=== PATIENT | female | born 1930 | race Caucasian/White ===

== ENCOUNTER → 2016-12-16 17:40 | Emergency (ER) | payer MEDICARE, OTHER ==
[~2016-12-16 17:40] MED LIST: Acetaminophen TAB* 325 MG PO ONE
[2016-12-16 17:53] VITALS: BP 146/86
--- NOTE | 2016-12-16 20:51 | RAD ---
Indication: Back pain after kicking a heavy object. Comparison: July 04, 2015 chest radiograph. Technique: Noncontrast CT thoracic spine. Multiplanar reformation. Report: Increased thoracic kyphosis. Osteoporotic compression fracture of T7 primarily involving the anterior column with approximate 50% loss of height is chronic. Severe anterior and middle column osteoporotic compression fracture at T8 is chronic. Mild osteoporotic compression fracture involving the anterior column superior endplate of T11 is chronic. No new thoracic spine fractures evident. Ectatic tortuous thoracic aorta measuring up to 3 cm diameter. Negative for paravertebral or mediastinal hematoma within the [id number]. Negative for pneumothorax or pleural effusion. IMPRESSION: Multiple old osteoporotic compression fractures of the thoracic spine as described. No new thoracic spine fractures.
--- NOTE | 2016-12-16 20:57 | RAD ---
Indication: Back pain after kicking a heavy object last night. Comparison: July 04, 2015 CT. Technique: Noncontrast CT lumbar sacral spine. Multiplanar reformation. Report: Atherosclerotic calcification of the abdominal aorta and iliac arteries without aneurysm. Negative for paravertebral hematoma. Negative for fracture or spondylolysis at any level. Normal vertebral alignment without spondylolisthesis at any level. T12-L1: Unremarkable disc level for age without acquired spinal stenosis. L1-L2: Unremarkable disc level for age without acquired spinal stenosis. L2-L3: Unremarkable disc level for age without acquired spinal stenosis. L3-L4: Mild annular disc bulge. Negative for acquired spinal stenosis. L4-L5: Advanced disc space narrowing. Mild broad posterior disc protrusion. Negative for acquired central canal stenosis. Degenerative spondylosis and facet joint osteoarthritis results in mild LEFT foraminal stenosis. L5-S1: Mild annular disc bulge. Negative for acquired spinal stenosis. IMPRESSION: 1. Negative for lumbar sacral spine fracture or malalignment. 2. Multilevel degenerative spondylosis and posterior element osteoarthritis as described without significant change. 3. Refer to dedicated thoracic spine CT of the same date for additional findings.
--- NOTE | 2016-12-16 21:47 | ED ---
Back Pain - HPI Summary HPI Summary: Patient presents with back pain that began this morning. She kicked a full trash bag yesterday and thinks this started her discomfort. She didn't feel any pain at the time she nudged the bag with her foot. She has a history of a bulging disk. She denies incontinence of urine or stool, no N/T, she ambulates well. Her pain is in the lumbar and thoracic region without radiation to the extremities. - History of Current Complaint Chief Complaint: EDBackInjuryPain Stated Complaint: LOW BACK PAIN Time Seen by Provider: 12/16/16 18:03 Hx Obtained From: Patient Onset/Duration: Gradual Onset, Still Present Onset/Duration: Traumatic Timing: Constant Severity Initially: Mild Severity Currently: Mild Pain Intensity: 3 Character: Aching, Stiffness Aggravating Symptom(s): Movement Alleviating Symptom(s): Position Associated Signs And Symptoms: Positive: Pain with Weight Bearing Related History: Previous Back Injury - Allergies/Home Medications Allergies/Adverse Reactions: Allergies Allergy/AdvReac Type Severity Reaction Status Date / Time Morphine Allergy Rash Verified 07/04/15 16:10 Tramadol Allergy Rash Verified 07/04/15 16:11 PMH/Surg Hx/FS Hx/Imm Hx Endocrine/Hematology History: Reports: Hx Diabetes - although in her hx - pt & family deny, Hx Thyroid Disease, Hx Anemia Cardiovascular History: Reports: Hx Hypercholesterolemia, Hx Hypertension, Hx Syncope, Other Cardiovascular Problems/Disorders - Irregular Denies: Hx Pacemaker/ICD Respiratory History: Reports: Hx Chronic Obstructive Pulmonary Disease (COPD), Other Respiratory Problems/Disorders - Smoker GI History: Reports: Hx Gastroesophageal Reflux Disease Sensory History: Reports: Hx Contacts or Glasses, Hx Hearing Aid - at home, Hx Hearing Problem Opthamlomology History: Reports: Hx Contacts or Glasses Psychiatric History: Denies: Hx Panic Disorder - Surgical History Surgery Procedure, Year, and Place: TONSILECTOMY Infectious Disease History: No Infectious Disease History: Denies: Traveled Outside the [place] in Last 30 Days - Family History Known Family History: Positive: None - Social History Occupation: Retired Lives: With Family Alcohol Use: None Substance Use Type: Reports: None Smoking Status (MU): Light Every Day Tobacco Smoker Type: Cigarettes Length of Time of Smoking/Using Tobacco: 40 years Have You Smoked in the Last Year: Yes Cessation Counseling: Patient Advised to Stop Review of Systems Positive: Myalgia Negative: Weakness, Paresthesia, Numbness All Other Systems Reviewed And Are Negative: Yes Physical Exam Triage Information Reviewed: Yes Vital Signs On Initial Exam: Initial Vitals Temp Pulse Resp BP Pulse Ox 98.0 F 66 18 146/86 98 12/16/16 17:42 12/16/16 17:42 12/16/16 17:42 12/16/16 17:42 12/16/16 17:42 Vital Signs Reviewed: Yes Appearance: Positive: Well-Appearing, No Pain Distress, Well-Nourished Skin: Positive: Warm, Skin Color Reflects Adequate Perfusion, Dry, Soft Head/Face: Positive: Normal Head/Face Inspection Eyes: Positive: EOMI, WALDEMAR, Conjunctiva Clear ENT: Positive: Hearing grossly normal Respiratory/Lung Sounds: Positive: Clear to Auscultation, Breath Sounds Present Cardiovascular: Positive: RRR Abdomen Description: Positive: Nontender, Soft Bowel Sounds: Positive: Present Musculoskeletal: Positive: Pain @ - + bilateral SLR; TTP bilataral lumbar spine Neurological: Positive: Sensory/Motor Intact, Alert, Oriented to Person Place, Time, NV Bundle Intact Distally, Normal Gait Psychiatric: Positive: Affect/Mood Appropriate AVPU Assessment: Alert Diagnostics - Vital Signs Vital Signs Temp Pulse Resp BP Pulse Ox 12/16/16 17:42 98.0 F 66 18 146/86 98 - Laboratory Lab Statement: Any lab studies that have been ordered have been reviewed, and results considered in the medical decision making process. - CT No standard instances CT Interpretation: No Acute Changes CT Interpretation Completed By: Radiologist Back Pain Course/Dx - Diagnoses Differential Diagnosis/HQI/PQRI: Positive: Aneurysm, Cauda Equina Syndrome, Compressive Cord Syndrome, Herniated Disc, Neoplasm, Strain, Sprain Provider Diagnoses: Low back strain Discharge - Discharge Plan Condition: Stable Disposition: HOME Patient Education Materials: Low Back Strain (ED) Referrals: Gilson Roa MD [Primary Care Provider] - Additional Instructions: Please rest your back and apply head or ice as needed. Use Tylenol regularly for pain. Follow-up with your primary care provider if in 2-3 days for re- evaluation to insure you are improving. Return to the emergency department if symptoms worsen.
== END | disposition home or self-care (01) ==
LOC: ED 17:40
DX: S39.012A Strain of muscle, fascia and tendon of lower back, initial encounter (principal); X58.XXXA Exposure to other specified factors, initial encounter; Y93.9 Activity, unspecified; Y92.89 Other specified places as the place of occurrence of the external cause
CPT/HCPCS: 72128; 72131; 99282; A9270-GY

== ENCOUNTER 2017-05-16 19:56 | Inpatient (IN) | payer MEDICARE, OTHER ==
--- NOTE | 2017-05-16 21:18 | RAD ---
INDICATION: Short of breath COMPARISON: July 04, 2015 TECHNIQUE: PA and lateral dual-energy views were obtained. FINDINGS: Bones/Soft Tissues: There are no acute bony findings. Cardiomediastinal: The cardiomediastinal silhouette is normal. Lungs: There is linear change in the right middle lobe which appears unchanged on the lateral view and now evident on the AP view. The lung mosley are otherwise clear. Pleura: There are no pleural effusions. Other: None IMPRESSION: NO ACUTE FINDINGS. SUSPECT RIGHT MIDDLE LOBE ATELECTASIS.
--- NOTE | 2017-05-16 21:18 | RAD ---
INDICATION: Abdominal pain COMPARISON: July 04, 2015 TECHNIQUE: A single view of the abdomen is submitted. FINDINGS: Bones: There are no acute bony findings. There is osteopenia with mild levoscoliosis Soft tissues: The soft tissues appear normal. The psoas margins are sharp. Bowel gas pattern: Normal Calcifications: There are no abnormal calcifications. Other: None IMPRESSION: NO ACUTE DIAGNOSTIC FINDINGS.
[2017-05-16 21:57] LABS: Hematocrit 39 % (35-47); Hemoglobin 12.2 g/dl (12.0-16.0); Mean Corpuscular HGB Conc 32 g/dl (31-36); Mean Corpuscular Hemoglobin 28 pg (27-31); Mean Corpuscular Volume 87 fL (80-97); Mean Platelet Volume 9 um3 (7.4-10.4); Red Blood Count 4.43 10^6/ul (4.0-5.4); Red Cell Distribution Width 17 % (10.5-15); White Blood Count 7.7 10^3/ul (3.5-10.8)
[2017-05-16 22:01] LABS: Comments Flag Yes
[2017-05-16 22:12] LABS: Albumin 2.8 g/dL (3.2-5.2); Calcium 9.6 mg/dL (8.6-10.3); EGFR African American 194.6 (>60); EGFR Non-African American 151.3 (>60); Globulin 3.9 g/dL (2-4); Magnesium 1.3 mg/dL (1.9-2.7); Potassium 3.7 mmol/L (3.5-5.0); Total Bilirubin 1.4 mg/dL (0.2-1.0); Total Protein 6.7 g/dL (6.4-8.9)
[2017-05-16 22:14] LABS: Troponin I 0.01 ng/mL (<0.04)
[2017-05-16 22:30] LABS: Urine Bilirubin Negative (Negative); Urine Glucose 1+(50 mg/dL) (Negative); Urine Nitrite Negative (Negative)
[2017-05-16 22:48] LABS: TSH (Thyroid Stimulating Horm) 0.38 mcIU/mL (0.34-5.60)
[2017-05-16] MEDS ORDERED: methylPREDNISolone 125 MG* 2 ML VIAL IV ONE (23:32)
--- NOTE | 2017-05-17 00:05 | HP ---
H&P (Free Text) History and Physical: PCP: Charity Roa MD Date/Time: 05/16/2017 8030 CC: SOB HPI: Mrs Anaya is an 86YO female HX subarachnoid hemorrhage, COPD, DM2, HTN who presents reporting SOB over the past week which is worse with walking around and better lying down. She denies chest pain, palpitations, N/V, light- headedness, F/C, sweats, or other issues. Tonight she reports it became worse prompting this evaluation. Additionally, her and her family report abdominal bloating/distention over the past 3 days w/o pain, N/V, or other issues. PMedHx subarachnoid hemorrhage COPD DM2 HTN hypothyroid GERD anemia Ambulatory Orders Nursing to reconcile. Levothyroxine TAB* [Synthroid 88 MCG TAB*] 88 mcg PO DAILY 06/15/13 Tiotropium CAP.INH* [Spiriva CAP.INH*] 1 cap INH DAILY 06/15/13 Ursodiol CAP* [Actigall CAP 300 MG*] 300 mg PO BID 06/23/14 Ascorbic Acid TAB* [Vitamin C TAB*] 250 mg PO BID 07/04/15 Acetaminophen [Eq Acetaminophen] 325 mg PO BEDTIME PRN 07/05/15 Meclizine HCl [Dramamine Less Drowsy-] 25 mg PO Q4H PRN 07/05/15 Nadolol [Corgard] 20 mg PO DAILY #30 tab 07/08/15 Omeprazole CAP* [Prilosec CAP* 20 MG] 20 mg PO BID #60 cap. 07/08/15 Allergies Morphine Allergy (Verified 05/16/17 23:53) Rash Tramadol Allergy (Verified 05/16/17 23:53) Rash PSurgHx tonsillectomy SocHx: 1-2cigarettes/day w/ >60PYHX, denies alcohol & recreational drugs; lives alone; DNR/I FamHx: Parents passed of "old age". ROS: as above, otherwise reviewed and all were negative vitals: Vital Signs Temp 36.3 C 05/16/17 20:00 Pulse 84 05/16/17 20:00 Resp 24 05/16/17 20:00 BP 167/95 05/16/17 20:00 Pulse Ox 100 05/16/17 20:00 Intake & Output 05/16/17 05/16/17 05/17/17 11:59 23:59 11:59 Weight 47.627 kg Constitutional: NAD, normally developed, thin frail appearing elderly white female HEENM: atraumatic; sclera/conjunctiva: anicteric/clear; hearing: moderately decreased; oropharynx: clear, mucosa tacky Neck: soft tissue: non-tender; thyroid: normal Pulmonary: diminished B w/ scand end-expiratory wheeze, fair aeration, no accessory muscle use CV: RR/RR, normal S1S2, no carotid bruit, no jugular venous distention, 2+ B DP/ PT, 2+ BLE edema Abdominal: soft, mild/mod distended, non-tender, no rebound/guarding/rigidity, normoactive bowel sounds, no hepatosplenomegaly or masses, no costovertebral angle tenderness Musculoskeletal: general: grossly intact, no palpable tenderness Integumental: normal appearance and texture of exposed skin Psychiatric orientation: AA&O to PPS affect: calm mood: cooperative, pleasant eye contact: good content: reliable responses: mildly slowed 2nd being hard of hearing & difficulty understanding insight: fair Testing: Lab Results 05/16/17 05/16/17 05/16/17 Range/Units 21:41 21:41 21:41 WBC 7.7 (3.5-10.8) 10^3/ul RBC 4.43 (4.0-5.4) 10^6/ul Hgb 12.2 (12.0-16.0) g/dl Hct 39 (35-47) % MCV 87 (80-97) fL MCH 28 (27-31) pg MCHC 32 (31-36) g/dl RDW 17 H (10.5-15) % Plt Count 98 L (150-450) 10^3/ul MPV 9 (7.4-10.4) um3 Neut % (Auto) 72.8 (38-83) % Lymph % (Auto) 17.8 L (25-47) % Ballard % (Auto) 7.8 (1-9) % Eos % (Auto) 1.2 (0-6) % Baso % (Auto) 0.4 (0-2) % Absolute Neuts (auto) 5.6 (1.5-7.7) 10^3/ul Absolute Lymphs (auto) 1.4 (1.0-4.8) 10^3/ul Absolute Monos (auto) 0.6 (0-0.8) 10^3/ul Absolute Eos (auto) 0.1 (0-0.6) 10^3/ul Absolute Basos (auto) 0 (0-0.2) 10^3/ul Absolute Nucleated RBC 0.01 10^3/ul Nucleated RBC % 0.1 Sodium 140 (133-145) mmol/L Potassium 3.7 (3.5-5.0) mmol/L Chloride 103 (101-111) mmol/L Carbon Dioxide 35 H (22-32) mmol/L Anion Gap 2 (2-11) mmol/L BUN 20 (6-24) mg/dL Creatinine 0.40 L (0.51-0.95) mg/dL Est GFR ( Amer) 194.6 (>60) Est GFR (Non-Af Amer) 151.3 (>60) BUN/Creatinine Ratio 50.0 H (8-20) Glucose 122 H (70-100) mg/dL Calcium 9.6 (8.6-10.3) mg/dL Magnesium 1.3 L (1.9-2.7) mg/dL Total Bilirubin 1.40 H (0.2-1.0) mg/dL AST 39 (13-39) U/L ALT 21 (7-52) U/L Alkaline Phosphatase 130 H (34-104) U/L Troponin I 0.01 (<0.04) ng/mL B-Natriuretic Peptide 189 H ( - 100) pg/mL Total Protein 6.7 (6.4-8.9) g/dL Albumin 2.8 L (3.2-5.2) g/dL Globulin 3.9 (2-4) g/dL Albumin/Globulin Ratio 0.7 L (1-3) TSH 0.38 (0.34-5.60) mcIU/mL Urine Color Urine Appearance Urine pH (5-9) Ur Specific [place] (1.010-1.030) Urine Protein (Negative) Urine Ketones (Negative) Urine Blood (Negative) Urine Nitrate (Negative) Urine Bilirubin (Negative) Urine Urobilinogen (Negative) Ur Leukocyte Esterase (Negative) Urine Glucose (Negative) Urine Ascorbic Acid (Negative) 05/16/17 Range/Units 22:20 WBC (3.5-10.8) 10^3/ul RBC (4.0-5.4) 10^6/ul Hgb (12.0-16.0) g/dl Hct (35-47) % MCV (80-97) fL MCH (27-31) pg MCHC (31-36) g/dl RDW (10.5-15) % Plt Count (150-450) 10^3/ul MPV (7.4-10.4) um3 Neut % (Auto) (38-83) % Lymph % (Auto) (25-47) % Ballard % (Auto) (1-9) % Eos % (Auto) (0-6) % Baso % (Auto) (0-2) % Absolute Neuts (auto) (1.5-7.7) 10^3/ul Absolute Lymphs (auto) (1.0-4.8) 10^3/ul Absolute Monos (auto) (0-0.8) 10^3/ul Absolute Eos (auto) (0-0.6) 10^3/ul Absolute Basos (auto) (0-0.2) 10^3/ul Absolute Nucleated RBC 10^3/ul Nucleated RBC % Sodium (133-145) mmol/L Potassium (3.5-5.0) mmol/L Chloride (101-111) mmol/L Carbon Dioxide (22-32) mmol/L Anion Gap (2-11) mmol/L BUN (6-24) mg/dL Creatinine (0.51-0.95) mg/dL Est GFR ( Amer) (>60) Est GFR (Non-Af Amer) (>60) BUN/Creatinine Ratio (8-20) Glucose (70-100) mg/dL Calcium (8.6-10.3) mg/dL Magnesium (1.9-2.7) mg/dL Total Bilirubin (0.2-1.0) mg/dL AST (13-39) U/L ALT (7-52) U/L Alkaline Phosphatase (34-104) U/L Troponin I (<0.04) ng/mL B-Natriuretic Peptide ( - 100) pg/mL Total Protein (6.4-8.9) g/dL Albumin (3.2-5.2) g/dL Globulin (2-4) g/dL Albumin/Globulin Ratio (1-3) TSH (0.34-5.60) mcIU/mL Urine Color Bia Urine Appearance Clear Urine pH 5.0 (5-9) Ur Specific [place] 1.024 (1.010-1.030) Urine Protein Negative (Negative) Urine Ketones Trace H (Negative) Urine Blood Negative (Negative) Urine Nitrate Negative (Negative) Urine Bilirubin Negative (Negative) Urine Urobilinogen Positive H (Negative) Ur Leukocyte Esterase Negative (Negative) Urine Glucose 1+(50 mg/dl) H (Negative) Urine Ascorbic Acid * H (Negative) ECG, personally reviewed: sinus LBBB rate 85 CXR, personally reviewed: IMPRESSION: NO ACUTE FINDINGS. SUSPECT RIGHT MIDDLE LOBE ATELECTASIS. XRY abdomen, personally reviewed: IMPRESSION: NO ACUTE DIAGNOSTIC FINDINGS. Impression: 86F presenting with SOB and clinically most consistent with COPD exacerbation, but also with signs of heart failure DIAGNOSIS & PLAN Primary COPD exacerbation : albuterol nebs : mometasone/formoterol : tiotropium : IV methylprednisolone : supplemental oxygen : supportive care Secondary HX subarachnoid hemorrhage : no acute issues DM2 : check A1c : consistent carb diet : ACHS glucometry : correctional insulin HTN : review meds once reconciled hypothyroid : review meds once reconciled GERD : omeprazole Admission Rational: observation for SOB, COPD exacerbation DVTp: SCDs, no anticoagulation given HX SAH Code Status: DNR HCP: sonWarren
[2017-05-17] MEDS ORDERED: CMCS: Melatonin (NF) 3 MG TAB PO PRN (01:22)
[2017-05-17] MEDS ORDERED: Acetaminophen TAB* 325 MG PO PRN (01:22)
[2017-05-17] MEDS ORDERED: Albuterol 2.5 MG/3 ML NEB.SOL* (0.083%) INH PRN (01:22)
[2017-05-17] MEDS ORDERED: Ondansetron INJ* 2 MG/ML VIAL IV PRN (01:22)
--- NOTE | 2017-05-17 03:44 | ED ---
Arabella Ware Edward, scribed for Funmilayo Diaz MD on 05/16/17 at 2031 . Shortness of Breath - HPI Summary HPI Summary: 86 y/o female BIBA c/o SOB and weakness starting around 1 week ago. The symptoms are not aggravated or alleviated by anything. No PMHx lung disease. Associated sx: decreased appetite, ABD distended first noticed by family this afternoon, bilateral pedal edema, loose bowel movements. Most of the information is provided by the pt's family. Smoker. Per family, the pt is much worse than baseline. - History of Current Complaint Chief Complaint: EDShortnessOfBreath Hx Obtained From: Patient Onset/Duration: Lasting Weeks Timing: Constant Aggrevating Factors: Nothing Alleviating Factors: Nothing Associated Signs & Symptoms: Edema - bilateral pedal edema - Allergy/Home Medications Allergies/Adverse Reactions: Allergies Allergy/AdvReac Type Severity Reaction Status Date / Time Morphine Allergy Rash Verified 05/16/17 23:53 Tramadol Allergy Rash Verified 05/16/17 23:53 PMH/Surg Hx/FS Hx/Imm Hx Previously Healthy: No Endocrine/Hematology History: Reports: Hx Diabetes - although in her hx - pt & family deny, Hx Thyroid Disease, Hx Anemia Cardiovascular History: Reports: Hx Hypercholesterolemia, Hx Hypertension, Hx Syncope, Other Cardiovascular Problems/Disorders - Irregular Denies: Hx Pacemaker/ICD Respiratory History: Reports: Hx Chronic Obstructive Pulmonary Disease (COPD), Other Respiratory Problems/Disorders - Smoker GI History: Reports: Hx Gastroesophageal Reflux Disease Sensory History: Reports: Hx Contacts or Glasses, Hx Hearing Aid - at home, Hx Hearing Problem Opthamlomology History: Reports: Hx Contacts or Glasses Psychiatric History: Denies: Hx Panic Disorder - Surgical History Surgery Procedure, Year, and Place: TONSILECTOMY Infectious Disease History: No Infectious Disease History: Denies: Traveled Outside the [place] in Last 30 Days - Family History Known Family History: Positive: None - Social History Alcohol Use: None Substance Use Type: Reports: None Smoking Status (MU): Light Every Day Tobacco Smoker Type: Cigarettes Length of Time of Smoking/Using Tobacco: 40 years Have You Smoked in the Last Year: Yes Review of Systems Positive: Other - Decreased appetite Eyes: Negative ENT: Negative Cardiovascular: Negative Positive: Shortness Of Breath Positive: Diarrhea, Other - ABD distension Genitourinary: Negative Musculoskeletal: Negative Skin: Negative Positive: Weakness Psychological: Normal All Other Systems Reviewed And Are Negative: No Physical Exam - Summary Physical Exam Summary: Appearance: The patient is in moderate pain distress. The patient is moaning, giving no history and awake. The patient is following instructions and occasionally speaks. Skin: Warm, dry, no mottling, no rashes, no contusions HEENT: EOMI, PERRL, dry mucous membranes Neck: No masses on the neck, supple Respiratory: Crackles at the lower bases. Her breath sounds are normal but there is some splinting. Cardiovascular: RRR, pulses are symmetrical in both lower and upper extremities Abdomen: Soft, distended, nonimpressively tender. Bowel Sounds: Present Musculoskeletal: No CVA tenderness, no obvious deformity, moving all extremities in a grossly normal manner. 2+ pedal edema Neurological: A&Ox3, CN II-XII Intact, moving all extremities symmetrically Psychiatric: Normal affect and mood Triage Information Reviewed: Yes Vital Signs On Initial Exam: Initial Vitals Temp Pulse Resp BP Pulse Ox 97.3 F 84 24 167/95 100 05/16/17 20:00 05/16/17 20:00 05/16/17 20:00 05/16/17 20:00 05/16/17 20:00 Vital Signs Reviewed: Yes - Fredi Coma Scale Coma Scale Total: 14 Diagnostics - Vital Signs Vital Signs Temp Pulse Resp BP Pulse Ox 05/16/17 20:00 97.3 F 84 24 167/95 100 - Laboratory Lab Results: Lab Results 05/16/17 05/16/17 05/16/17 Range/Units 21:41 21:41 21:41 WBC 7.7 (3.5-10.8) 10^3/ul RBC 4.43 (4.0-5.4) 10^6/ul Hgb 12.2 (12.0-16.0) g/dl Hct 39 (35-47) % MCV 87 (80-97) fL MCH 28 (27-31) pg MCHC 32 (31-36) g/dl RDW 17 H (10.5-15) % Plt Count 98 L (150-450) 10^3/ul MPV 9 (7.4-10.4) um3 Neut % (Auto) 72.8 (38-83) % Lymph % (Auto) 17.8 L (25-47) % [place] % (Auto) 7.8 (1-9) % Eos % (Auto) 1.2 (0-6) % Baso % (Auto) 0.4 (0-2) % Absolute Neuts (auto) 5.6 (1.5-7.7) 10^3/ul Absolute Lymphs (auto) 1.4 (1.0-4.8) 10^3/ul Absolute Monos (auto) 0.6 (0-0.8) 10^3/ul Absolute Eos (auto) 0.1 (0-0.6) 10^3/ul Absolute Basos (auto) 0 (0-0.2) 10^3/ul Absolute Nucleated RBC 0.01 10^3/ul Nucleated RBC % 0.1 Sodium 140 (133-145) mmol/L Potassium 3.7 (3.5-5.0) mmol/L Chloride 103 (101-111) mmol/L Carbon Dioxide 35 H (22-32) mmol/L Anion Gap 2 (2-11) mmol/L BUN 20 (6-24) mg/dL Creatinine 0.40 L (0.51-0.95) mg/dL Est GFR ( Amer) 194.6 (>60) Est GFR (Non-Af Amer) 151.3 (>60) BUN/Creatinine Ratio 50.0 H (8-20) Glucose 122 H (70-100) mg/dL Calcium 9.6 (8.6-10.3) mg/dL Magnesium 1.3 L (1.9-2.7) mg/dL Total Bilirubin 1.40 H (0.2-1.0) mg/dL AST 39 (13-39) U/L ALT 21 (7-52) U/L Alkaline Phosphatase 130 H (34-104) U/L Troponin I 0.01 (<0.04) ng/mL B-Natriuretic Peptide 189 H ( - 100) pg/mL Total Protein 6.7 (6.4-8.9) g/dL Albumin 2.8 L (3.2-5.2) g/dL Globulin 3.9 (2-4) g/dL Albumin/Globulin Ratio 0.7 L (1-3) TSH 0.38 (0.34-5.60) mcIU/mL Urine Color Urine Appearance Urine pH (5-9) Ur Specific [place] (1.010-1.030) Urine Protein (Negative) Urine Ketones (Negative) Urine Blood (Negative) Urine Nitrate (Negative) Urine Bilirubin (Negative) Urine Urobilinogen (Negative) Ur Leukocyte Esterase (Negative) Urine Glucose (Negative) Urine Ascorbic Acid (Negative) 05/16/17 Range/Units 22:20 WBC (3.5-10.8) 10^3/ul RBC (4.0-5.4) 10^6/ul Hgb (12.0-16.0) g/dl Hct (35-47) % MCV (80-97) fL MCH (27-31) pg MCHC (31-36) g/dl RDW (10.5-15) % Plt Count (150-450) 10^3/ul MPV (7.4-10.4) um3 Neut % (Auto) (38-83) % Lymph % (Auto) (25-47) % [place] % (Auto) (1-9) % Eos % (Auto) (0-6) % Baso % (Auto) (0-2) % Absolute Neuts (auto) (1.5-7.7) 10^3/ul Absolute Lymphs (auto) (1.0-4.8) 10^3/ul Absolute Monos (auto) (0-0.8) 10^3/ul Absolute Eos (auto) (0-0.6) 10^3/ul Absolute Basos (auto) (0-0.2) 10^3/ul Absolute Nucleated RBC 10^3/ul Nucleated RBC % Sodium (133-145) mmol/L Potassium (3.5-5.0) mmol/L Chloride (101-111) mmol/L Carbon Dioxide (22-32) mmol/L Anion Gap (2-11) mmol/L BUN (6-24) mg/dL Creatinine (0.51-0.95) mg/dL Est GFR ( Amer) (>60) Est GFR (Non-Af Amer) (>60) BUN/Creatinine Ratio (8-20) Glucose (70-100) mg/dL Calcium (8.6-10.3) mg/dL Magnesium (1.9-2.7) mg/dL Total Bilirubin (0.2-1.0) mg/dL AST (13-39) U/L ALT (7-52) U/L Alkaline Phosphatase (34-104) U/L Troponin I (<0.04) ng/mL B-Natriuretic Peptide ( - 100) pg/mL Total Protein (6.4-8.9) g/dL Albumin (3.2-5.2) g/dL Globulin (2-4) g/dL Albumin/Globulin Ratio (1-3) TSH (0.34-5.60) mcIU/mL Urine Color Bia Urine Appearance Clear Urine pH 5.0 (5-9) Ur Specific [place] 1.024 (1.010-1.030) Urine Protein Negative (Negative) Urine Ketones Trace H (Negative) Urine Blood Negative (Negative) Urine Nitrate Negative (Negative) Urine Bilirubin Negative (Negative) Urine Urobilinogen Positive H (Negative) Ur Leukocyte Esterase Negative (Negative) Urine Glucose 1+(50 mg/dl) H (Negative) Urine Ascorbic Acid * H (Negative) Result Diagrams: 05/16/17 21:41 05/16/17 21:41 Lab Statement: Any lab studies that have been ordered have been reviewed, and results considered in the medical decision making process. - Radiology ABD XR Xray Interpretation: No Acute Changes - NO ACUTE DIAGNOSTIC FINDINGS. Radiology Interpretation Completed By: Radiologist - ED PHYSICIAN REVIEWS AND AGREES CXR Xray Interpretation: No Acute Changes - NO ACUTE FINDINGS. SUSPECT RIGHT MIDDLE LOBE ATELECTASIS. Radiology Interpretation Completed By: Radiologist - ED PHYSICIAN REVIEWS AND AGREES - EKG 1 EKG Interpretation: 21:23 - SR @ 85 BPM. LBBB. No AMI. Course/Dx - Course Assessment/Plan: 86 y/o female BIBA c/o SOB and weakness starting around 1 week ago. The symptoms are not aggravated or alleviated by anything. No PMHx lung disease. Associated sx: decreased appetite, ABD distended first noticed by family this afternoon, bilateral pedal edema, loose bowel movements. Most of the information is provided by the pt's family. Smoker. Per family, the pt is much worse than baseline. ABD XR SHOWS NO ACUTE DIAGNOSTIC FINDINGS. CXR SHOWS NO ACUTE FINDINGS. SUSPECT RIGHT MIDDLE LOBE ATELECTASIS. Spoke with Dr. Almanza, who will admit the pt to [facility] @ 23:38. - Diagnoses Provider Diagnoses: Weakness, COPD exacerbation - Physician Notifications Discussed Care of Patient With: Pablo Almanza Time Discussed With Above Provider: 23:38 Instructed by Provider To: Admit As Inpatient Discharge - Discharge Plan Condition: Stable Disposition: ADMITTED TO [facility] documentation as recorded by the Arabella cheng Edward accurately reflects the service I personally performed and the decisions made by , Funmilayo Diaz MD.
[2017-05-17] MEDS: Omeprazole CAP* 20 MG PO SCH (06:04)
[2017-05-17 06:57] LABS: Hematocrit 36 % (35-47); Hemoglobin 11.2 g/dl (12.0-16.0); Mean Corpuscular HGB Conc 31 g/dl (31-36); Mean Corpuscular Hemoglobin 28 pg (27-31); Mean Corpuscular Volume 88 fL (80-97); Mean Platelet Volume 10 um3 (7.4-10.4); Red Blood Count 4.06 10^6/ul (4.0-5.4); Red Cell Distribution Width 16 % (10.5-15); White Blood Count 5.2 10^3/ul (3.5-10.8)
[2017-05-17 07:11] LABS: Comments Flag Yes
[2017-05-17 07:19] LABS: ALT 19 U/L (7-52); AST 36 U/L (13-39); Albumin 2.6 g/dL (3.2-5.2); Alkaline Phosphatase 124 U/L (34-104); CO2 Carbon Dioxide 37 mmol/L (22-32); Calcium 9.4 mg/dL (8.6-10.3); Chloride 105 mmol/L (101-111); EGFR African American 194.6 (>60); EGFR Non-African American 151.3 (>60); Globulin 3.4 g/dL (2-4); Glucose 148 mg/dL (70-100); Indirect Bilirubin 0.6 mg/dL (0.3-1.0); Sodium 142 mmol/L (133-145)
[2017-05-17 07:21] LABS: Prealbumin 5 mg/dL (18-38)
[2017-05-17] MEDS: Albuterol 2.5 MG/3 ML NEB.SOL* (0.083%) INH SCH ×3 (08:14→19:43)
[2017-05-17] MEDS: Mometasone/Formoter 200/5 MDI INH SCH ×2 (08:17→19:48)
[2017-05-17 08:42] LABS: BUN/Creatinine Ratio 52.5 (8-20); Blood Urea Nitrogen 21 mg/dL (6-24)
[2017-05-17] MEDS: Insulin LISPRO* 1 UNITS UNIT SUBCUT SCH ×4 (08:48→21:49)
[2017-05-17] MEDS: Docusate CAP* 100 MG PO SCH ×2 (08:49→22:00)
[2017-05-17] MEDS ORDERED: Influenza VAC *QUAD* 2017-18* 0.5 ML SYRINGE IM ONE (09:00)
--- NOTE | 2017-05-17 11:44 | ECHO ---
Patient: ANNAMARIA FRIEND [facility] Rec#: [id number] : 1930 Date: 05/17/2017 Age: 86y Height: 152.4 cm / 60.0 in Weight: 47.6 kg / 104.9 lbs Sex: F BSA: 1.42 Room#: [facility] Admit Date#: 05/16/2017 Type: Inpatient Referring: Pablo Almanza MD Reading: Jose Armando Hansen MD [employer] Worker: Nithya Summers RN RDCS CC: Gilson Roa MD Transthoracic Echocardiogram Indication: CHF BP: 104/51 HR: 109 Rhythm: Tachycardia Findings History: DM, HTN, LBBB, hypothyroidism, COPD, former smoker, subarachnoid hemorrhage, GERD Technical Comments: The study is technically limited due to patient body habitus. The study is technically limited due to the patient's history of COPD. The study is technically limited due to the patient's smoking history. Completed at 1045. Left Ventricle: The left ventricular chamber size is normal. Septal wall hypertrophy is observed. There is basal septal hypertrophy without evidence of systolic anterior motion.There is turbulence and mildly increased velocities in the LVOT. There is a focal wall motion abnormality present. There is mildly decreased left ventricular systolic function. The estimated ejection fraction is 45-50%. There is a left ventricular septal wall motion abnormality observed, possibly due to the presence of a left bundle branch block. The assessment of diastolic function is non-diagnostic. The patient was unable to perform a Valsalva maneuver. The apical lateral wall segment is hypokinetic (score 2). Overall wallmotion score index is 1.50 Left Atrium: The left atrial chamber size is normal. Right Ventricle: The right ventricle is not well visualized. The right ventricular cavity size is normal. The right ventricular global systolic function is normal. Right Atrium: The right atrium is not well visualized. The interatrial septum bowed toward the left. Aortic Valve: The aortic valve is trileaflet. The aortic valve leaflets are mildly thickened. There is aortic annular calcification. There is a trace of aortic regurgitation. There is mild aortic stenosis. The mean gradient of the aortic valve is 9.4 mmHg. The peak instantaneous gradient of the aortic valve is 13.4 mmHg. The aortic valve area, by peak velocities, is calculated at 1.9 cm2. The aortic valve area, by VTI's, is calculated at 1.7 cm2. Mitral Valve: There is mitral annular calcification. The mitral valve leaflets are mildly thickened. There is a trace of mitral regurgitation. There is no evidence of mitral stenosis. Tricuspid Valve: The tricuspid valve structure is not well visualized. The tricuspid valve leaflets are normal. There is trace to mild tricuspid regurgitation. Unable to estimate the right ventricular systolic pressure. Pulmonic Valve: The pulmonic valve structure is not well visualized. Pericardium: There is no significant pericardial effusion. Aorta: There is no dilatation of the ascending aorta. There is no dilatation of the aortic arch. There is no dilation of the aortic root. Pulmonary Artery: The main pulmonary artery is not well visualized. Venous: The venous system is not well visualized. The inferior vena cava is not visualized. Summary: There are changes noted when compared to the previous study done on 06/26/14. The LV function is slightly better on this study Conclusions There is mildly decreased left ventricular systolic function. The estimated ejection fraction is 45-50%. There is basal septal hypertrophy without evidence of systolic anterior motion.There is turbulence and mildly increased velocities in the LVOT. There is a left ventricular septal wall motion abnormality observed, possibly due to the presence of a left bundle branch block. The apical lateral wall segment is hypokinetic (score 2). The right ventricular global systolic function is normal. The aortic valve leaflets are mildly thickened. There is mild aortic stenosis. The mean gradient of the aortic valve is 9.4 mmHg. There is a trace of mitral regurgitation. There is trace to mild tricuspid regurgitation. Unable to estimate the right ventricular systolic pressure. There is no significant pericardial effusion. There are changes noted when compared to the previous study done on 06/26/14. The LV function is slightly better on this study Measurements Name Value Normal Range RVDdMajor (2D) 2.9 cm (2.2 - 4.4) IVSd (2D) 1.2 cm (0.6 - 1) LVPWd (2D) 1 cm (0.6 - 1) LVIDd (2D) 3.3 cm (3.6 - 5.4) LVIDs (2D) 2.5 cm - LV FS (2D) 24 % (25 - 45) Aortic Annulus 1.6 cm (1.4 - 2.6) Ao root diameter (2D) 2.9 cm (2.1 - 3.5) Ascending Ao 3 cm (2.1 - 3.4) Aortic arch 2.2 cm (1.8 - 3.4) LA dimension (AP) 2D 3.1 cm (2.3 - 3.8) LAd ISD 4CH 5.2 cm (2.9 - 5.3) LA ISD 4CH W 3 cm (2.5 - 4.5) Name Value Normal Range LA ESV SP 4CH (A/L) 24.2 ml - LA ESV SP 2CH (A/L) 14.9 ml - LA ESV BP (A/L) 20.9 ml - LA ESV BP (A/L) index 14.7 ml/m2 - LA ESV SP 4CH (MOD) 22.9 ml - LA ESV SP 2CH (MOD) 14.5 ml - Name Value Normal Range MV E-wave Vmax 1.3 m/sec - MV deceleration time 124 msec - MV A-wave Vmax 1.4 m/sec - MV E:A ratio 0.9 ratio - LV septal e' Vmax 0.05 m/sec - LV lateral e' Vmax 0.07 m/sec - LV E:e' septal ratio 26 ratio - LV E:e' lateral ratio 18.6 ratio - Name Value Normal Range AV Vmax 1.8 m/sec - AV VTI 31.3 cm - AV peak gradient 13.4 mmHg - AV mean gradient 9.4 mmHg - LVOT diameter 1.9 cm - LVOT Vmax 1.2 m/sec - LVOT VTI 19.1 cm - LVOT peak gradient 5.8 mmHg - LVOT mean gradient 3.4 mmHg - DOI (VTI) 0.61 ratio - DOI (Vmax) 0.67 ratio - SV LVOT 56 ml - VÍCTOR (continuity Vmax) 1.9 cm2 - VÍCTOR (continuity VTI) 1.7 cm2 - RUDDY Vmax 0.46 m/sec - Name Value Normal Range PV Vmax 1.1 m/sec - Wallmotion BAS Not Seen BA Not Seen BAL Not Seen ANKIT Not Seen BI Not Seen BIS Not Seen MAS Not Seen MA Not Seen MAL Not Seen MIL Not Seen VT Not Seen MIS Not Seen Normal AA Not Seen AL Hypokinetic AI Not Seen APEX Not Seen
[2017-05-17] MEDS ORDERED: Iodixanol* (CONTRAST) 320 MG/ML 100 ML SDV IV ONE (15:32)
--- NOTE | 2017-05-17 15:36 | PN ---
Subjective Date of Service: 05/17/17 Interval History: Seen this AM and again this afternoon with daughter and granddaughter at bedside SOB still present, better when lying 45 degrees from sitting straight up No chest pain, N/V, Family relays about 10lb weight loss since January Objective Active Medications: Acetaminophen (Tylenol Tab*) 650 mg PO Q6H PRN PRN Reason: FEVER/PAIN Albuterol (Ventolin 2.5 Mg/3 Ml Neb.Jeane*) 2.5 mg INH Q2H PRN PRN Reason: SOB/WHEEZING Albuterol (Ventolin 2.5 Mg/3 Ml Neb.Jeane*) 2.5 mg INH [id number] AWAKE [facility] Last Admin: 05/17/17 13:08 Dose: 2.5 mg Docusate Sodium (Colace Cap*) 200 mg PO BID [facility] Last Admin: 05/17/17 08:49 Dose: 200 mg Insulin Human Lispro (Humalog*) 0 units SUBCUT ACHS [facility] PRN Reason: Protocol Last Admin: 05/17/17 12:21 Dose: 2 unit Melatonin (Melatonin (Nf)) 3 mg PO BEDTIME PRN; Protocol PRN Reason: Sleep Methylprednisolone Sodium Succinate (Solu-Medrol 40 Mg) 40 mg IV Q8H [facility] Mometasone Furoate/Formoterol Fumar (Dulera 200/5 Mdi*) 2 puff INH BID [facility] Last Admin: 05/17/17 08:17 Dose: 2 puff Omeprazole (Prilosec Cap*) 20 mg PO DAILY@0600 [facility] Last Admin: 05/17/17 06:04 Dose: Not Given Ondansetron HCl (Zofran Inj*) 4 mg IV Q6H PRN PRN Reason: NAUSEA Oxygen Devices in Use Now: Nasal Cannula Appearance: thin, NAD Eyes: No Scleral Icterus, PERRLA Ears/Nose/Mouth/Throat: - - dry mm Neck: NL Appearance and Movements; NL JVP, Trachea Midline Respiratory: Symmetrical Chest Expansion and Respiratory Effort, - - decreased BS Cardiovascular: - - tachy, regular, 2/6 holosystolic murmur llsb Abdominal: - - soft, TTP throughout, distened, no rebound/guarding, +bs Lymphatic: No Cervical Adenopathy Extremities: No Edema, No Clubbing, Cyanosis Skin: No Rash or Ulcers, No Nodules or Sclerosis Neurological: Alert and Oriented x 3 Result Diagrams: 05/17/17 06:26 05/17/17 06:26 Additional Lab and Data: Lab Results 05/16/17 05/16/17 05/16/17 Range/Units 21:41 21:41 21:41 WBC 7.7 (3.5-10.8) 10^3/ul RBC 4.43 (4.0-5.4) 10^6/ul Hgb 12.2 (12.0-16.0) g/dl Hct 39 (35-47) % MCV 87 (80-97) fL MCH 28 (27-31) pg MCHC 32 (31-36) g/dl RDW 17 H (10.5-15) % Plt Count 98 L (150-450) 10^3/ul MPV 9 (7.4-10.4) um3 Neut % (Auto) 72.8 (38-83) % Lymph % (Auto) 17.8 L (25-47) % [place] % (Auto) 7.8 (1-9) % Eos % (Auto) 1.2 (0-6) % Baso % (Auto) 0.4 (0-2) % Absolute Neuts (auto) 5.6 (1.5-7.7) 10^3/ul Absolute Lymphs (auto) 1.4 (1.0-4.8) 10^3/ul Absolute Monos (auto) 0.6 (0-0.8) 10^3/ul Absolute Eos (auto) 0.1 (0-0.6) 10^3/ul Absolute Basos (auto) 0 (0-0.2) 10^3/ul Absolute Nucleated RBC 0.01 10^3/ul Nucleated RBC % 0.1 Sodium 140 (133-145) mmol/L Potassium 3.7 (3.5-5.0) mmol/L Chloride 103 (101-111) mmol/L Carbon Dioxide 35 H (22-32) mmol/L Anion Gap 2 (2-11) mmol/L BUN 20 (6-24) mg/dL Creatinine 0.40 L (0.51-0.95) mg/dL Est GFR ( Amer) 194.6 (>60) Est GFR (Non-Af Amer) 151.3 (>60) BUN/Creatinine Ratio 50.0 H (8-20) Glucose 122 H (70-100) mg/dL Calcium 9.6 (8.6-10.3) mg/dL Magnesium 1.3 L (1.9-2.7) mg/dL Total Bilirubin 1.40 H (0.2-1.0) mg/dL AST 39 (13-39) U/L ALT 21 (7-52) U/L Alkaline Phosphatase 130 H (34-104) U/L Troponin I 0.01 (<0.04) ng/mL B-Natriuretic Peptide 189 H ( - 100) pg/mL Total Protein 6.7 (6.4-8.9) g/dL Albumin 2.8 L (3.2-5.2) g/dL Globulin 3.9 (2-4) g/dL Albumin/Globulin Ratio 0.7 L (1-3) TSH 0.38 (0.34-5.60) mcIU/mL Urine Color Urine Appearance Urine pH (5-9) Ur Specific [place] (1.010-1.030) Urine Protein (Negative) Urine Ketones (Negative) Urine Blood (Negative) Urine Nitrate (Negative) Urine Bilirubin (Negative) Urine Urobilinogen (Negative) Ur Leukocyte Esterase (Negative) Urine Glucose (Negative) Urine Ascorbic Acid (Negative) 05/16/17 Range/Units 22:20 WBC (3.5-10.8) 10^3/ul RBC (4.0-5.4) 10^6/ul Hgb (12.0-16.0) g/dl Hct (35-47) % MCV (80-97) fL MCH (27-31) pg MCHC (31-36) g/dl RDW (10.5-15) % Plt Count (150-450) 10^3/ul MPV (7.4-10.4) um3 Neut % (Auto) (38-83) % Lymph % (Auto) (25-47) % [place] % (Auto) (1-9) % Eos % (Auto) (0-6) % Baso % (Auto) (0-2) % Absolute Neuts (auto) (1.5-7.7) 10^3/ul Absolute Lymphs (auto) (1.0-4.8) 10^3/ul Absolute Monos (auto) (0-0.8) 10^3/ul Absolute Eos (auto) (0-0.6) 10^3/ul Absolute Basos (auto) (0-0.2) 10^3/ul Absolute Nucleated RBC 10^3/ul Nucleated RBC % Sodium (133-145) mmol/L Potassium (3.5-5.0) mmol/L Chloride (101-111) mmol/L Carbon Dioxide (22-32) mmol/L Anion Gap (2-11) mmol/L BUN (6-24) mg/dL Creatinine (0.51-0.95) mg/dL Est GFR ( Amer) (>60) Est GFR (Non-Af Amer) (>60) BUN/Creatinine Ratio (8-20) Glucose (70-100) mg/dL Calcium (8.6-10.3) mg/dL Magnesium (1.9-2.7) mg/dL Total Bilirubin (0.2-1.0) mg/dL AST (13-39) U/L ALT (7-52) U/L Alkaline Phosphatase (34-104) U/L Troponin I (<0.04) ng/mL B-Natriuretic Peptide ( - 100) pg/mL Total Protein (6.4-8.9) g/dL Albumin (3.2-5.2) g/dL Globulin (2-4) g/dL Albumin/Globulin Ratio (1-3) TSH (0.34-5.60) mcIU/mL Urine Color Bia Urine Appearance Clear Urine pH 5.0 (5-9) Ur Specific [place] 1.024 (1.010-1.030) Urine Protein Negative (Negative) Urine Ketones Trace H (Negative) Urine Blood Negative (Negative) Urine Nitrate Negative (Negative) Urine Bilirubin Negative (Negative) Urine Urobilinogen Positive H (Negative) Ur Leukocyte Esterase Negative (Negative) Urine Glucose 1+(50 mg/dl) H (Negative) Urine Ascorbic Acid * H (Negative) Assess/Plan/Problems-Billing Assessment: 86 yo F with significant weight loss and decreased energy x 4 months presents with increasing sob over the last 3 days - Patient Problems (1) Acute respiratory failure with hypoxia Comment: No e/o underlying PNA or metabolic cause for tachypnea and hypoxia concern for PE given increased imobility, tachycardia and hypoxia Check CTA chest COPD also on differential. Continue IV steroids and inhaled medications. Nadolol was not restarted and tachycardia may represent rebound (2) CHF (congestive heart failure) Comment: combined systolic/diastolic - chornic compensated (3) COPD (chronic obstructive pulmonary disease) Comment: suspect contributing to SOB steroids IV dulera Did not appear to be on prophylactic meds at home (4) Hypothyroidism Comment: Continue current dose of synthroid. (5) Non-insulin dependent type 2 diabetes mellitus Comment: HbA1c 5.5% Stop FSG (6) Protein calorie malnutrition Comment: Severe Pre albumin <5 >10% weight loss in 4 months nutrition c/s (7) DVT prophylaxis Comment: SCDs with h/o SAH
--- NOTE | 2017-05-17 16:52 | RAD ---
INDICATION: New hypoxia and tachycardia. COPD. Assess for pulmonary embolus. COMPARISON: May 16, 2017 chest radiograph and July 04, 2015 CT abdomen. December 16, 2016 CT thoracic spine. TECHNIQUE: Multidetector CT images were obtained from the lung apices to the upper abdomen with 56 mL Visipaque 320 IV contrast. Pulmonary angiogram protocol. Multiplanar reformation including with maximum intensity projection. REPORT: Emphysema most prominent at the upper lung zones. No suspicious focal pulmonary lesion. Small dependent RIGHT and trace LEFT pleural effusions with proportional basilar atelectasis. Negative for pneumothorax. Negative for thoracic lymphadenopathy, cardiomegaly, pericardial effusion. Tortuous thoracic aorta. Top normal diameter of the aorta at the thoracic abdominal junction measuring up to 2.9 cm diameter without significant change. Negative for dissection of the thoracic aorta. Moderate peripheral atherosclerotic plaque at the visualized abdominal aorta at the level of the renal arteries. Filling defects within the bilateral upper lung zone pulmonary arteries consistent with pulmonary emboli with the largest at the apical and posterior RIGHT upper lobe segmental pulmonary arteries. Images through the upper abdomen are remarkable for a large volume ascites new compared with the 2014 exam. Partially visualized LEFT kidney is remarkable for mild pelvicaliectasis new compared with the prior exam. Advanced compression fracture of the T8 vertebral body without significant change in advanced compression fracture of the T12 vertebral body involving the anterior and middle columns with interval worsening compared with the December 16, [address] Negative for significant resulting central canal stenosis. Negative for paravertebral hematoma. IMPRESSION: 1. Moderate burden of acute pulmonary emboli most confluent at the upper lobes. 2. Emphysema. 3. Images through the upper abdomen are remarkable for a large volume ascites new compared with the 2014 exam. Partially visualized LEFT kidney is remarkable for mild pelvicaliectasis new compared with the prior exam. 4. Interval worsening of T12 vertebral body fracture involving the anterior and middle columns compared with the August 18, 2016 CT. Negative for significant resulting central canal stenosis. No visualized paravertebral hematoma. Results discussed with Dr. Manning 05/17/2017 4:48 PM EST
[2017-05-17] MEDS ORDERED: Heparin VIAL(*) 5000 UNITS/ML VIAL (FIVE THOUSAND) IV SCH (17:00)
[2017-05-17] MEDS ORDERED: Heparin DRIP 25,000 UNITS(*) 25,000 UNITS/500 ML BAG IVPB SCH (17:00)
[2017-05-17] MEDS ORDERED: Enoxaparin(*) 40 MG/0.4 ML SYR SUBCUT SCH (17:00)
[2017-05-17] MEDS: Enoxaparin(*) 40 MG/0.4 ML SYR SUBCUT SCH (17:53)
[2017-05-18] MEDS: Albuterol 2.5 MG/3 ML NEB.SOL* (0.083%) INH SCH ×2 (00:55→07:57)
[2017-05-18] MEDS ORDERED: Heparin VIAL(*) 5000 UNITS/ML VIAL (FIVE THOUSAND) SUBCUT SCH (06:00)
[2017-05-18] MEDS: Omeprazole CAP* 20 MG PO SCH (06:16)
[2017-05-18] MEDS: Enoxaparin(*) 40 MG/0.4 ML SYR SUBCUT SCH ×2 (06:17→16:59)
[2017-05-18] MEDS: Levothyroxine TAB* 88 MCG TAB PO SCH (06:17)
[2017-05-18] MEDS: Insulin LISPRO* 1 UNITS UNIT SUBCUT SCH ×4 (07:31→21:33)
[2017-05-18 07:33] LABS: Hematocrit 34 % (35-47); Hemoglobin 10.8 g/dl (12.0-16.0); Mean Corpuscular HGB Conc 32 g/dl (31-36); Mean Corpuscular Hemoglobin 28 pg (27-31); Mean Corpuscular Volume 88 fL (80-97); Mean Platelet Volume 10 um3 (7.4-10.4); Red Blood Count 3.91 10^6/ul (4.0-5.4); Red Cell Distribution Width 17 % (10.5-15); White Blood Count 8.2 10^3/ul (3.5-10.8)
[2017-05-18] MEDS: Tiotropium CAP.INH* CAP.INH/18 MCG (USE ORDER SET !) INH SCH (07:33)
[2017-05-18 07:34] LABS: Comments Flag Yes
[2017-05-18] MEDS: Nadolol TAB* 40 MG PO SCH (07:34)
[2017-05-18] MEDS: Docusate CAP* 100 MG PO SCH ×2 (07:34→21:31)
[2017-05-18] MEDS ORDERED: methylPREDNISolone SOD 40 MG* 1 ML VIAL IV SCH (08:00)
[2017-05-18] MEDS: Mometasone/Formoter 200/5 MDI INH SCH ×2 (08:00→19:53)
[2017-05-18] MEDS ORDERED: Spiriva Inhaler DEVICE* 1 EACH DEVICE ONE (09:00)
[2017-05-18] MEDS: HYDROcodone/ACETAMIN 5-325 MG* 1 TAB PO PRN ×2 (10:58→16:59)
[2017-05-18] MEDS: methylPREDNISolone SOD 40 MG* 1 ML VIAL IV SCH ×2 (10:58→16:59)
--- NOTE | 2017-05-18 15:31 | PN ---
Subjective Date of Service: 05/18/17 Interval History: Seen with daughter, granddaughter, and son/HCP at bedside Pt denies SOB Pain in back this AM that was relieved with norco No evidence of bleeding Objective Active Medications: Hydrocodone Bitart/Acetaminophen ([place] 5-325 Tab*) 1 tab PO Q4H PRN PRN Reason: PAIN Hydrocodone Bitart/Acetaminophen ([place] 5-325 Tab*) 2 tab PO Q4H PRN PRN Reason: PAIN Last Admin: 05/18/17 10:58 Dose: 2 tab Albuterol (Ventolin 2.5 Mg/3 Ml Neb.Jeane*) 2.5 mg INH Q2H PRN PRN Reason: SOB/WHEEZING Docusate Sodium (Colace Cap*) 200 mg PO BID [facility] Last Admin: 05/18/17 07:34 Dose: 200 mg Enoxaparin Sodium (Lovenox(*)) 40 mg SUBCUT Q12H [facility] Last Admin: 05/18/17 06:17 Dose: 40 mg Insulin Human Lispro (Humalog*) 0 units SUBCUT ACHS [facility] PRN Reason: Protocol Last Admin: 05/18/17 12:31 Dose: Not Given Levothyroxine Sodium (Synthroid Tab*) 88 mcg PO DAILY@0600 [facility] Last Admin: 05/18/17 06:17 Dose: 88 mcg Melatonin (Melatonin (Nf)) 3 mg PO BEDTIME PRN; Protocol PRN Reason: Sleep Methylprednisolone Sodium Succinate (Solu-Medrol 40 Mg) 40 mg IV Q8H [facility] Last Admin: 05/18/17 10:58 Dose: 40 mg Mometasone Furoate/Formoterol Fumar (Dulera 200/5 Mdi*) 2 puff INH BID [facility] Last Admin: 05/18/17 08:00 Dose: 2 puff Nadolol (Corgard Tab*) 20 mg PO DAILY [facility] Last Admin: 05/18/17 07:34 Dose: 20 mg Omeprazole (Prilosec Cap*) 20 mg PO DAILY@0600 [facility] Last Admin: 05/18/17 06:16 Dose: 20 mg Ondansetron HCl (Zofran Inj*) 4 mg IV Q6H PRN PRN Reason: NAUSEA Tiotropium [place] (Spiriva Cap.Inh*) 1 cap INH DAILY [facility] Last Admin: 05/18/17 07:33 Dose: 1 cap Warfarin Sodium (Coumadin Tab(*)) 5 mg PO ONCE@1700 [facility] PRN Reason: Protocol Stop: 05/18/17 17:01 Warfarin Sodium (Coumadin Tab(*)) 2.5 mg PO DAILY@1700 [facility] PRN Reason: Protocol Vital Signs 05/17/17 05/17/17 05/17/17 17:17 19:45 19:46 Temperature 98.0 F 97.8 F Pulse Rate 100 98 94 Respiratory 16 19 16 Rate Blood Pressure 116/65 126/65 (mmHg) O2 Sat by Pulse 97 94 98 Oximetry 05/17/17 05/18/17 05/18/17 23:42 00:00 04:25 Temperature 97.4 F 97.9 F Pulse Rate 93 85 Respiratory 24 24 Rate Blood Pressure 112/62 118/66 (mmHg) O2 Sat by Pulse 95 93 99 Oximetry 05/18/17 05/18/17 05/18/17 07:21 07:55 07:56 Temperature 97.5 F Pulse Rate 74 94 Respiratory 22 22 Rate Blood Pressure 118/68 94/56 (mmHg) O2 Sat by Pulse 94 96 Oximetry 05/18/17 05/18/17 05/18/17 07:57 08:01 10:20 Temperature Pulse Rate 85 75 Respiratory 20 17 18 Rate Blood Pressure (mmHg) O2 Sat by Pulse 95 95 Oximetry 05/18/17 05/18/17 05/18/17 10:58 12:08 12:51 Temperature 97.8 F Pulse Rate 75 Respiratory 20 22 18 Rate Blood Pressure 118/67 (mmHg) O2 Sat by Pulse 100 Oximetry Oxygen Devices in Use Now: Nasal Cannula Appearance: elderly, thin, NAD, falls asleep during conversation Eyes: No Scleral Icterus, PERRLA Ears/Nose/Mouth/Throat: Mucous Membranes Moist Neck: NL Appearance and Movements; NL JVP, Trachea Midline Respiratory: Symmetrical Chest Expansion and Respiratory Effort, - - distant, expiratory wheeze Cardiovascular: RRR Abdominal: NL Sounds; No Tenderness; No Distention, No Hepatosplenomegaly Lymphatic: No Cervical Adenopathy Extremities: No Edema Skin: No Rash or Ulcers Neurological: Alert and Oriented x 3, - - easily falls asleep Result Diagrams: 05/18/17 07:02 05/17/17 06:26 Additional Lab and Data: Lab Results 1105/16/17 05/16/17 Range/Units 21:41 21:41 21:41 WBC 7.7 (3.5-10.8) 10^3/ul RBC 4.43 (4.0-5.4) 10^6/ul Hgb 12.2 (12.0-16.0) g/dl Hct 39 (35-47) % MCV 87 (80-97) fL MCH 28 (27-31) pg MCHC 32 (31-36) g/dl RDW 17 H (10.5-15) % Plt Count 98 L (150-450) 10^3/ul MPV 9 (7.4-10.4) um3 Neut % (Auto) 72.8 (38-83) % Lymph % (Auto) 17.8 L (25-47) % [place] % (Auto) 7.8 (1-9) % Eos % (Auto) 1.2 (0-6) % Baso % (Auto) 0.4 (0-2) % Absolute Neuts (auto) 5.6 (1.5-7.7) 10^3/ul Absolute Lymphs (auto) 1.4 (1.0-4.8) 10^3/ul Absolute Monos (auto) 0.6 (0-0.8) 10^3/ul Absolute Eos (auto) 0.1 (0-0.6) 10^3/ul Absolute Basos (auto) 0 (0-0.2) 10^3/ul Absolute Nucleated RBC 0.01 10^3/ul Nucleated RBC % 0.1 Sodium 140 (133-145) mmol/L Potassium 3.7 (3.5-5.0) mmol/L Chloride 103 (101-111) mmol/L Carbon Dioxide 35 H (22-32) mmol/L Anion Gap 2 (2-11) mmol/L BUN 20 (6-24) mg/dL Creatinine 0.40 L (0.51-0.95) mg/dL Est GFR ( Amer) 194.6 (>60) Est GFR (Non-Af Amer) 151.3 (>60) BUN/Creatinine Ratio 50.0 H (8-20) Glucose 122 H (70-100) mg/dL Calcium 9.6 (8.6-10.3) mg/dL Magnesium 1.3 L (1.9-2.7) mg/dL Total Bilirubin 1.40 H (0.2-1.0) mg/dL AST 39 (13-39) U/L ALT 21 (7-52) U/L Alkaline Phosphatase 130 H (34-104) U/L Troponin I 0.01 (<0.04) ng/mL B-Natriuretic Peptide 189 H ( - 100) pg/mL Total Protein 6.7 (6.4-8.9) g/dL Albumin 2.8 L (3.2-5.2) g/dL Globulin 3.9 (2-4) g/dL Albumin/Globulin Ratio 0.7 L (1-3) TSH 0.38 (0.34-5.60) mcIU/mL Urine Color Urine Appearance Urine pH (5-9) Ur Specific [place] (1.010-1.030) Urine Protein (Negative) Urine Ketones (Negative) Urine Blood (Negative) Urine Nitrate (Negative) Urine Bilirubin (Negative) Urine Urobilinogen (Negative) Ur Leukocyte Esterase (Negative) Urine Glucose (Negative) Urine Ascorbic Acid (Negative) 05/16/17 Range/Units 22:20 WBC (3.5-10.8) 10^3/ul RBC (4.0-5.4) 10^6/ul Hgb (12.0-16.0) g/dl Hct (35-47) % MCV (80-97) fL MCH (27-31) pg MCHC (31-36) g/dl RDW (10.5-15) % Plt Count (150-450) 10^3/ul MPV (7.4-10.4) um3 Neut % (Auto) (38-83) % Lymph % (Auto) (25-47) % Christian % (Auto) (1-9) % Eos % (Auto) (0-6) % Baso % (Auto) (0-2) % Absolute Neuts (auto) (1.5-7.7) 10^3/ul Absolute Lymphs (auto) (1.0-4.8) 10^3/ul Absolute Monos (auto) (0-0.8) 10^3/ul Absolute Eos (auto) (0-0.6) 10^3/ul Absolute Basos (auto) (0-0.2) 10^3/ul Absolute Nucleated RBC 10^3/ul Nucleated RBC % Sodium (133-145) mmol/L Potassium (3.5-5.0) mmol/L Chloride (101-111) mmol/L Carbon Dioxide (22-32) mmol/L Anion Gap (2-11) mmol/L BUN (6-24) mg/dL Creatinine (0.51-0.95) mg/dL Est GFR ( Amer) (>60) Est GFR (Non-Af Amer) (>60) BUN/Creatinine Ratio (8-20) Glucose (70-100) mg/dL Calcium (8.6-10.3) mg/dL Magnesium (1.9-2.7) mg/dL Total Bilirubin (0.2-1.0) mg/dL AST (13-39) U/L ALT (7-52) U/L Alkaline Phosphatase (34-104) U/L Troponin I (<0.04) ng/mL B-Natriuretic Peptide ( - 100) pg/mL Total Protein (6.4-8.9) g/dL Albumin (3.2-5.2) g/dL Globulin (2-4) g/dL Albumin/Globulin Ratio (1-3) TSH (0.34-5.60) mcIU/mL Urine Color Bia Urine Appearance Clear Urine pH 5.0 (5-9) Ur Specific [place] 1.024 (1.010-1.030) Urine Protein Negative (Negative) Urine Ketones Trace H (Negative) Urine Blood Negative (Negative) Urine Nitrate Negative (Negative) Urine Bilirubin Negative (Negative) Urine Urobilinogen Positive H (Negative) Ur Leukocyte Esterase Negative (Negative) Urine Glucose 1+(50 mg/dl) H (Negative) Urine Ascorbic Acid * H (Negative) Assess/Plan/Problems-Billing Assessment: 86 yo F with significant weight loss and decreased energy x 4 months presents with increasing sob over the last 3 days - Patient Problems (1) Acute respiratory failure with hypoxia Comment: Pulmonary embolisms present on CTA Started on lovenox with bridge to coumadin Elevated bleeding risk given history of UGI bleed with esophageal varices and SAH Increased wheezing today after disocntinuation of steroids. Restart steroids for suspected concomittant COPD exacerbation Remains O2 dependent (2) CHF (congestive heart failure) Comment: combined systolic/diastolic - chronic compensated (3) COPD (chronic obstructive pulmonary disease) Comment: suspect contributing to SOB steroids IV dulera Did not appear to be on prophylactic meds at home (4) Hypothyroidism Comment: Continue current dose of synthroid. (5) Non-insulin dependent type 2 diabetes mellitus Comment: HbA1c 5.5% Stop FSG (6) Protein calorie malnutrition Comment: Severe Pre albumin <5 >10% weight loss in 4 months nutrition c/s (7) DVT prophylaxis Comment: lovenox Status and Disposition: Severe debility. Plan on placement in (at least) short term rehab. Pt and family in agreement.
[2017-05-18] MEDS ORDERED: Warfarin TAB(*) 5 MG PO ONE (17:00)
[2017-05-19] MEDS: methylPREDNISolone SOD 40 MG* 1 ML VIAL IV SCH ×3 (02:23→18:04)
[2017-05-19] MEDS: Levothyroxine TAB* 88 MCG TAB PO SCH (06:03)
[2017-05-19] MEDS: Enoxaparin(*) 40 MG/0.4 ML SYR SUBCUT SCH ×2 (06:03→18:04)
[2017-05-19] MEDS: Omeprazole CAP* 20 MG PO SCH (06:03)
[2017-05-19] MEDS: Insulin LISPRO* 1 UNITS UNIT SUBCUT SCH ×4 (07:54→21:19)
[2017-05-19] MEDS: Tiotropium CAP.INH* CAP.INH/18 MCG (USE ORDER SET !) INH SCH (08:09)
[2017-05-19] MEDS: Mometasone/Formoter 200/5 MDI INH SCH ×2 (08:09→20:34)
[2017-05-19] MEDS: Docusate CAP* 100 MG PO SCH ×2 (09:17→21:18)
[2017-05-19] MEDS: Nadolol TAB* 40 MG PO SCH (09:18)
--- NOTE | 2017-05-19 16:23 | PN ---
Subjective Date of Service: 05/19/17 Interval History: Seen and examined this AM with granddaughter at bedside [place] distressed this AM because she could not get her teach in Denies SOB, CP germain snot worked with PT but is willing to work with them today Objective Active Medications: Hydrocodone Bitart/Acetaminophen ([place] 5-325 Tab*) 1 tab PO Q4H PRN PRN Reason: PAIN Hydrocodone Bitart/Acetaminophen ([place] 5-325 Tab*) 2 tab PO Q4H PRN PRN Reason: PAIN Last Admin: 05/18/17 16:59 Dose: 2 tab Albuterol (Ventolin 2.5 Mg/3 Ml Neb.Jeane*) 2.5 mg INH Q2H PRN PRN Reason: SOB/WHEEZING Docusate Sodium (Colace Cap*) 200 mg PO BID [facility] Last Admin: 05/19/17 09:17 Dose: 200 mg Enoxaparin Sodium (Lovenox(*)) 40 mg SUBCUT Q12H [facility] Last Admin: 05/19/17 06:03 Dose: 40 mg Insulin Human Lispro (Humalog*) 0 units SUBCUT ACHS [facility] PRN Reason: Protocol Last Admin: 05/19/17 13:17 Dose: 1 unit Levothyroxine Sodium (Synthroid Tab*) 88 mcg PO DAILY@0600 [facility] Last Admin: 05/19/17 06:03 Dose: 88 mcg Melatonin (Melatonin (Nf)) 3 mg PO BEDTIME PRN; Protocol PRN Reason: Sleep Methylprednisolone Sodium Succinate (Solu-Medrol 40 Mg) 40 mg IV Q8H [facility] Last Admin: 05/19/17 10:57 Dose: 40 mg Mometasone Furoate/Formoterol Fumar (Dulera 200/5 Mdi*) 2 puff INH BID [facility] Last Admin: 05/19/17 08:09 Dose: 2 puff Nadolol (Corgard Tab*) 20 mg PO DAILY [facility] Last Admin: 05/19/17 09:18 Dose: 20 mg Omeprazole (Prilosec Cap*) 20 mg PO DAILY@0600 [facility] Last Admin: 05/19/17 06:03 Dose: 20 mg Ondansetron HCl (Zofran Inj*) 4 mg IV Q6H PRN PRN Reason: NAUSEA Tiotropium [place] (Spiriva Cap.Inh*) 1 cap INH DAILY [facility] Last Admin: 05/19/17 08:09 Dose: 1 cap Warfarin Sodium (Coumadin Tab(*)) 2.5 mg PO DAILY@1700 [facility] PRN Reason: Protocol Vital Signs 05/18/17 05/18/17 05/18/17 16:55 16:59 19:29 Temperature 98.1 F Pulse Rate 82 Respiratory 20 20 20 Rate Blood Pressure 138/66 (mmHg) O2 Sat by Pulse 99 Oximetry 05/18/17 05/18/17 05/18/17 20:00 22:47 23:26 Temperature 97 F Pulse Rate 80 Respiratory 18 18 Rate Blood Pressure 117/45 (mmHg) O2 Sat by Pulse 100 95 Oximetry 05/18/17 05/19/17 05/19/17 23:33 00:00 03:43 Temperature 97.8 F 97.4 F Pulse Rate 81 78 Respiratory 20 23 Rate Blood Pressure 121/63 108/57 (mmHg) O2 Sat by Pulse 96 96 93 Oximetry 05/19/17 05/19/17 05/19/17 04:29 07:30 07:42 Temperature 97.3 F 97.3 F Pulse Rate 88 88 Respiratory 18 20 20 Rate Blood Pressure 112/52 112/52 (mmHg) O2 Sat by Pulse 96 96 Oximetry 05/19/17 05/19/17 05/19/17 08:00 12:19 12:57 Temperature 97.3 F Pulse Rate 73 Respiratory 16 16 Rate Blood Pressure 118/60 (mmHg) O2 Sat by Pulse 96 95 95 Oximetry 05/19/17 16:04 Temperature 97.8 F Pulse Rate 74 Respiratory 22 Rate Blood Pressure 134/73 (mmHg) O2 Sat by Pulse 100 Oximetry Oxygen Devices in Use Now: Nasal Cannula Appearance: thin, NAD Eyes: No Scleral Icterus, PERRLA Ears/Nose/Mouth/Throat: Clear Oropharnyx Neck: NL Appearance and Movements; NL JVP, Trachea Midline Respiratory: Symmetrical Chest Expansion and Respiratory Effort Cardiovascular: RRR Abdominal: - - distended, NTTP, +bs Skin: No Rash or Ulcers Neurological: Alert and Oriented x 3 Result Diagrams: 05/18/17 07:02 05/17/17 06:26 Additional Lab and Data: Lab Results 05/16/17 05/16/17 05/16/17 Range/Units 21:41 21:41 21:41 WBC 7.7 (3.5-10.8) 10^3/ul RBC 4.43 (4.0-5.4) 10^6/ul Hgb 12.2 (12.0-16.0) g/dl Hct 39 (35-47) % MCV 87 (80-97) fL MCH 28 (27-31) pg MCHC 32 (31-36) g/dl RDW 17 H (10.5-15) % Plt Count 98 L (150-450) 10^3/ul MPV 9 (7.4-10.4) um3 Neut % (Auto) 72.8 (38-83) % Lymph % (Auto) 17.8 L (25-47) % [place] % (Auto) 7.8 (1-9) % Eos % (Auto) 1.2 (0-6) % Baso % (Auto) 0.4 (0-2) % Absolute Neuts (auto) 5.6 (1.5-7.7) 10^3/ul Absolute Lymphs (auto) 1.4 (1.0-4.8) 10^3/ul Absolute Monos (auto) 0.6 (0-0.8) 10^3/ul Absolute Eos (auto) 0.1 (0-0.6) 10^3/ul Absolute Basos (auto) 0 (0-0.2) 10^3/ul Absolute Nucleated RBC 0.01 10^3/ul Nucleated RBC % 0.1 Sodium 140 (133-145) mmol/L Potassium 3.7 (3.5-5.0) mmol/L Chloride 103 (101-111) mmol/L Carbon Dioxide 35 H (22-32) mmol/L Anion Gap 2 (2-11) mmol/L BUN 20 (6-24) mg/dL Creatinine 0.40 L (0.51-0.95) mg/dL Est GFR ( Amer) 194.6 (>60) Est GFR (Non-Af Amer) 151.3 (>60) BUN/Creatinine Ratio 50.0 H (8-20) Glucose 122 H (70-100) mg/dL Calcium 9.6 (8.6-10.3) mg/dL Magnesium 1.3 L (1.9-2.7) mg/dL Total Bilirubin 1.40 H (0.2-1.0) mg/dL AST 39 (13-39) U/L ALT 21 (7-52) U/L Alkaline Phosphatase 130 H (34-104) U/L Troponin I 0.01 (<0.04) ng/mL B-Natriuretic Peptide 189 H ( - 100) pg/mL Total Protein 6.7 (6.4-8.9) g/dL Albumin 2.8 L (3.2-5.2) g/dL Globulin 3.9 (2-4) g/dL Albumin/Globulin Ratio 0.7 L (1-3) TSH 0.38 (0.34-5.60) mcIU/mL Urine Color Urine Appearance Urine pH (5-9) Ur Specific [place] (1.010-1.030) Urine Protein (Negative) Urine Ketones (Negative) Urine Blood (Negative) Urine Nitrate (Negative) Urine Bilirubin (Negative) Urine Urobilinogen (Negative) Ur Leukocyte Esterase (Negative) Urine Glucose (Negative) Urine Ascorbic Acid (Negative) 05/16/17 Range/Units 22:20 WBC (3.5-10.8) 10^3/ul RBC (4.0-5.4) 10^6/ul Hgb (12.0-16.0) g/dl Hct (35-47) % MCV (80-97) fL MCH (27-31) pg MCHC (31-36) g/dl RDW (10.5-15) % Plt Count (150-450) 10^3/ul MPV (7.4-10.4) um3 Neut % (Auto) (38-83) % Lymph % (Auto) (25-47) % [place] % (Auto) (1-9) % Eos % (Auto) (0-6) % Baso % (Auto) (0-2) % Absolute Neuts (auto) (1.5-7.7) 10^3/ul Absolute Lymphs (auto) (1.0-4.8) 10^3/ul Absolute Monos (auto) (0-0.8) 10^3/ul Absolute Eos (auto) (0-0.6) 10^3/ul Absolute Basos (auto) (0-0.2) 10^3/ul Absolute Nucleated RBC 10^3/ul Nucleated RBC % Sodium (133-145) mmol/L Potassium (3.5-5.0) mmol/L Chloride (101-111) mmol/L Carbon Dioxide (22-32) mmol/L Anion Gap (2-11) mmol/L BUN (6-24) mg/dL Creatinine (0.51-0.95) mg/dL Est GFR ( Amer) (>60) Est GFR (Non-Af Amer) (>60) BUN/Creatinine Ratio (8-20) Glucose (70-100) mg/dL Calcium (8.6-10.3) mg/dL Magnesium (1.9-2.7) mg/dL Total Bilirubin (0.2-1.0) mg/dL AST (13-39) U/L ALT (7-52) U/L Alkaline Phosphatase (34-104) U/L Troponin I (<0.04) ng/mL B-Natriuretic Peptide ( - 100) pg/mL Total Protein (6.4-8.9) g/dL Albumin (3.2-5.2) g/dL Globulin (2-4) g/dL Albumin/Globulin Ratio (1-3) TSH (0.34-5.60) mcIU/mL Urine Color Bia Urine Appearance Clear Urine pH 5.0 (5-9) Ur Specific [place] 1.024 (1.010-1.030) Urine Protein Negative (Negative) Urine Ketones Trace H (Negative) Urine Blood Negative (Negative) Urine Nitrate Negative (Negative) Urine Bilirubin Negative (Negative) Urine Urobilinogen Positive H (Negative) Ur Leukocyte Esterase Negative (Negative) Urine Glucose 1+(50 mg/dl) H (Negative) Urine Ascorbic Acid * H (Negative) Assess/Plan/Problems-Billing Assessment: 86 yo F with h/o upper GIB, esophageal varices, cirrhosis (no h/o alcohol), SAH 2013, significant weight loss and decreased energy x 4 months presents with increasing sob over the last 3 days found with PEs - Patient Problems (1) Acute respiratory failure with hypoxia Comment: Pulmonary embolisms present on CTA Started on lovenox with bridge to coumadin Elevated bleeding risk given history of UGI bleed with esophageal varices and SAH Increased wheezing after disocntinuation of steroids. Restarted steroids for suspected concomittant COPD exacerbation Remains O2 dependent (new) (2) CHF (congestive heart failure) Comment: combined systolic/diastolic - chronic compensated (3) COPD (chronic obstructive pulmonary disease) Comment: suspect contributing to SOB steroids IV dulera Did not appear to be on prophylactic meds at home (4) Hypothyroidism Comment: Continue current dose of synthroid. (5) Non-insulin dependent type 2 diabetes mellitus Comment: HbA1c 5.5% Stop FSG (6) Protein calorie malnutrition Comment: Severe Pre albumin <5 >10% weight loss in 4 months nutrition c/s (7) DVT prophylaxis Comment: lovenox to coumadin Status and Disposition: Severe debility. Plan on placement in (at least) short term rehab. Pt and family in agreement.
[2017-05-19] MEDS ORDERED: Warfarin TAB(*) 2.5 MG PO SCH (17:00)
[2017-05-20] MEDS: methylPREDNISolone SOD 40 MG* 1 ML VIAL IV SCH ×2 (01:58→10:37)
[2017-05-20] MEDS: Enoxaparin(*) 40 MG/0.4 ML SYR SUBCUT SCH (05:37)
[2017-05-20] MEDS: Omeprazole CAP* 20 MG PO SCH (05:37)
[2017-05-20] MEDS: Levothyroxine TAB* 88 MCG TAB PO SCH (05:37)
[2017-05-20] MEDS: Mometasone/Formoter 200/5 MDI INH SCH ×2 (07:58→20:06)
[2017-05-20] MEDS: Tiotropium CAP.INH* CAP.INH/18 MCG (USE ORDER SET !) INH SCH (07:58)
[2017-05-20] MEDS: Nadolol TAB* 40 MG PO SCH (08:11)
[2017-05-20] MEDS: HYDROcodone/ACETAMIN 5-325 MG* 1 TAB PO PRN (08:11)
[2017-05-20] MEDS: Docusate CAP* 100 MG PO SCH (08:11)
[2017-05-20] MEDS: Insulin LISPRO* 1 UNITS UNIT SUBCUT SCH ×4 (08:12→21:02)
--- NOTE | 2017-05-20 12:54 | PN ---
Subjective Date of Service: 05/20/17 Interval History: Patient denies pain, cough, SOB. Appetite poor. No new c/o. Objective Active Medications: Hydrocodone Bitart/Acetaminophen ([place] 5-325 Tab*) 1 tab PO Q4H PRN PRN Reason: PAIN Last Admin: 05/20/17 08:11 Dose: 1 tab Hydrocodone Bitart/Acetaminophen ([place] 5-325 Tab*) 2 tab PO Q4H PRN PRN Reason: PAIN Last Admin: 05/18/17 16:59 Dose: 2 tab Albuterol (Ventolin 2.5 Mg/3 Ml Neb.Jeane*) 2.5 mg INH Q2H PRN PRN Reason: SOB/WHEEZING Last Admin: 05/19/17 18:23 Dose: 2.5 mg Docusate Sodium (Colace Cap*) 200 mg PO BID [facility] Last Admin: 05/20/17 08:11 Dose: 200 mg Insulin Human Lispro (Humalog*) 0 units SUBCUT ACHS [facility] PRN Reason: Protocol Last Admin: 05/20/17 11:37 Dose: Not Given Levothyroxine Sodium (Synthroid Tab*) 88 mcg PO DAILY@0600 [facility] Last Admin: 05/20/17 05:37 Dose: 88 mcg Melatonin (Melatonin (Nf)) 3 mg PO BEDTIME PRN; Protocol PRN Reason: Sleep Methylprednisolone Sodium Succinate (Solu-Medrol 40 Mg) 40 mg IV Q8H [facility] Last Admin: 05/20/17 10:37 Dose: 40 mg Mometasone Furoate/Formoterol Fumar (Dulera 200/5 Mdi*) 2 puff INH BID [facility] Last Admin: 05/20/17 07:58 Dose: 2 puff Nadolol (Corgard Tab*) 20 mg PO DAILY [facility] Last Admin: 05/20/17 08:11 Dose: 20 mg Omeprazole (Prilosec Cap*) 20 mg PO DAILY@0600 [facility] Last Admin: 05/20/17 05:37 Dose: 20 mg Ondansetron HCl (Zofran Inj*) 4 mg IV Q6H PRN PRN Reason: NAUSEA Tiotropium [place] (Spiriva Cap.Inh*) 1 cap INH DAILY [facility] Last Admin: 05/20/17 07:58 Dose: 1 cap Ursodiol (Actigall Cap*) 300 mg PO BID [facility] Vital Signs 05/19/17 05/19/17 05/19/17 12:57 16:04 18:26 Temperature 97.8 F Pulse Rate 74 88 Respiratory 22 23 Rate Blood Pressure 134/73 (mmHg) O2 Sat by Pulse 95 100 83 Oximetry 05/19/17 05/19/17 05/19/17 19:46 20:00 20:25 Temperature 97.4 F Pulse Rate 56 Respiratory 16 28 Rate Blood Pressure 131/64 (mmHg) O2 Sat by Pulse 89 95 Oximetry 05/19/17 05/19/17 05/19/17 20:29 20:34 23:32 Temperature 97.8 F Pulse Rate 62 83 Respiratory 28 28 21 Rate Blood Pressure 114/63 (mmHg) O2 Sat by Pulse 95 93 Oximetry 05/20/17 05/20/17 05/20/17 00:00 03:00 05:01 Temperature 98.5 F Pulse Rate 83 Respiratory 23 Rate Blood Pressure 123/63 (mmHg) O2 Sat by Pulse 95 97 97 Oximetry 05/20/17 05/20/17 05/20/17 07:27 07:59 08:00 Temperature 97.3 F Pulse Rate 91 Respiratory 16 28 Rate Blood Pressure 158/80 (mmHg) O2 Sat by Pulse 96 95 96 Oximetry 05/20/17 05/20/17 05/20/17 08:03 08:05 08:06 Temperature Pulse Rate 73 91 Respiratory 18 18 Rate Blood Pressure (mmHg) O2 Sat by Pulse 96 95 96 Oximetry 05/20/17 05/20/17 05/20/17 08:11 11:36 11:59 Temperature 97.4 F Pulse Rate 82 Respiratory 24 24 15 Rate Blood Pressure 120/84 (mmHg) O2 Sat by Pulse 97 Oximetry Oxygen Devices in Use Now: Nasal Cannula, OxyMask Appearance: Somewhat lethargic. In a chair. Sl tachypneic. Seems depressed. Eyes: No Scleral Icterus Neck: NL Appearance and Movements; NL JVP, No Thyroid Enlargement, Masses Respiratory: Symmetrical Chest Expansion and Respiratory Effort, Clear to Auscultation, Clear to Percussion Abdominal: - - Soft, nl BS, not tender. Large amount of ascites. Extremities: No Edema, No Clubbing, Cyanosis, - Skin: No Rash or Ulcers, No Nodules or Sclerosis, - Neurological: Alert and Oriented x 3, NL Sensation - lethargic Result Diagrams: 05/18/17 07:02 05/17/17 06:26 Additional Lab and Data: Lab Results 05/16/17 05/16/17 05/16/17 Range/Units 21:41 21:41 21:41 WBC 7.7 (3.5-10.8) 10^3/ul RBC 4.43 (4.0-5.4) 10^6/ul Hgb 12.2 (12.0-16.0) g/dl Hct 39 (35-47) % MCV 87 (80-97) fL MCH 28 (27-31) pg MCHC 32 (31-36) g/dl RDW 17 H (10.5-15) % Plt Count 98 L (150-450) 10^3/ul MPV 9 (7.4-10.4) um3 Neut % (Auto) 72.8 (38-83) % Lymph % (Auto) 17.8 L (25-47) % [place] % (Auto) 7.8 (1-9) % Eos % (Auto) 1.2 (0-6) % Baso % (Auto) 0.4 (0-2) % Absolute Neuts (auto) 5.6 (1.5-7.7) 10^3/ul Absolute Lymphs (auto) 1.4 (1.0-4.8) 10^3/ul Absolute Monos (auto) 0.6 (0-0.8) 10^3/ul Absolute Eos (auto) 0.1 (0-0.6) 10^3/ul Absolute Basos (auto) 0 (0-0.2) 10^3/ul Absolute Nucleated RBC 0.01 10^3/ul Nucleated RBC % 0.1 Sodium 140 (133-145) mmol/L Potassium 3.7 (3.5-5.0) mmol/L Chloride 103 (101-111) mmol/L Carbon Dioxide 35 H (22-32) mmol/L Anion Gap 2 (2-11) mmol/L BUN 20 (6-24) mg/dL Creatinine 0.40 L (0.51-0.95) mg/dL Est GFR ( Amer) 194.6 (>60) Est GFR (Non-Af Amer) 151.3 (>60) BUN/Creatinine Ratio 50.0 H (8-20) Glucose 122 H (70-100) mg/dL Calcium 9.6 (8.6-10.3) mg/dL Magnesium 1.3 L (1.9-2.7) mg/dL Total Bilirubin 1.40 H (0.2-1.0) mg/dL AST 39 (13-39) U/L ALT 21 (7-52) U/L Alkaline Phosphatase 130 H (34-104) U/L Troponin I 0.01 (<0.04) ng/mL B-Natriuretic Peptide 189 H ( - 100) pg/mL Total Protein 6.7 (6.4-8.9) g/dL Albumin 2.8 L (3.2-5.2) g/dL Globulin 3.9 (2-4) g/dL Albumin/Globulin Ratio 0.7 L (1-3) TSH 0.38 (0.34-5.60) mcIU/mL Urine Color Urine Appearance Urine pH (5-9) Ur Specific [place] (1.010-1.030) Urine Protein (Negative) Urine Ketones (Negative) Urine Blood (Negative) Urine Nitrate (Negative) Urine Bilirubin (Negative) Urine Urobilinogen (Negative) Ur Leukocyte Esterase (Negative) Urine Glucose (Negative) Urine Ascorbic Acid (Negative) 05/16/17 Range/Units 22:20 WBC (3.5-10.8) 10^3/ul RBC (4.0-5.4) 10^6/ul Hgb (12.0-16.0) g/dl Hct (35-47) % MCV (80-97) fL MCH (27-31) pg MCHC (31-36) g/dl RDW (10.5-15) % Plt Count (150-450) 10^3/ul MPV (7.4-10.4) um3 Neut % (Auto) (38-83) % Lymph % (Auto) (25-47) % [place] % (Auto) (1-9) % Eos % (Auto) (0-6) % Baso % (Auto) (0-2) % Absolute Neuts (auto) (1.5-7.7) 10^3/ul Absolute Lymphs (auto) (1.0-4.8) 10^3/ul Absolute Monos (auto) (0-0.8) 10^3/ul Absolute Eos (auto) (0-0.6) 10^3/ul Absolute Basos (auto) (0-0.2) 10^3/ul Absolute Nucleated RBC 10^3/ul Nucleated RBC % Sodium (133-145) mmol/L Potassium (3.5-5.0) mmol/L Chloride (101-111) mmol/L Carbon Dioxide (22-32) mmol/L Anion Gap (2-11) mmol/L BUN (6-24) mg/dL Creatinine (0.51-0.95) mg/dL Est GFR ( Amer) (>60) Est GFR (Non-Af Amer) (>60) BUN/Creatinine Ratio (8-20) Glucose (70-100) mg/dL Calcium (8.6-10.3) mg/dL Magnesium (1.9-2.7) mg/dL Total Bilirubin (0.2-1.0) mg/dL AST (13-39) U/L ALT (7-52) U/L Alkaline Phosphatase (34-104) U/L Troponin I (<0.04) ng/mL B-Natriuretic Peptide ( - 100) pg/mL Total Protein (6.4-8.9) g/dL Albumin (3.2-5.2) g/dL Globulin (2-4) g/dL Albumin/Globulin Ratio (1-3) TSH (0.34-5.60) mcIU/mL Urine Color Bia Urine Appearance Clear Urine pH 5.0 (5-9) Ur Specific [place] 1.024 (1.010-1.030) Urine Protein Negative (Negative) Urine Ketones Trace H (Negative) Urine Blood Negative (Negative) Urine Nitrate Negative (Negative) Urine Bilirubin Negative (Negative) Urine Urobilinogen Positive H (Negative) Ur Leukocyte Esterase Negative (Negative) Urine Glucose 1+(50 mg/dl) H (Negative) Urine Ascorbic Acid * H (Negative) Assess/Plan/Problems-Billing Assessment: 86 yo F with h/o upper GIB, esophageal varices, cirrhosis (no h/o alcohol), SAH 2013, significant weight loss and decreased energy x 4 months presents with increasing sob over the last 3 days found with PEs - Patient Problems (1) Pulmonary embolism Current Visit: Yes Status: Acute Code(s): I26.99 - OTHER PULMONARY EMBOLISM WITHOUT ACUTE COR PULMONALE SNOMED Code(s): 85872918 Comment: INR 2.99 after one dose wafarin 5 mg. Stop warfarin and enoxaparin. INR likely will be over 2 for many days. I discussed palliative care with the son who is her HCP and he was very receptive to this. (2) COPD (chronic obstructive pulmonary disease) Current Visit: Yes Status: Chronic Priority: Medium Code(s): J44.9 - CHRONIC OBSTRUCTIVE PULMONARY DISEASE, UNSPECIFIED SNOMED Code(s): 69069264 Comment: Prednisone to start 05/21, recievied IV steroids already. dulera (3) CHF (congestive heart failure) Current Visit: Yes Status: Acute Code(s): I50.9 - HEART FAILURE, UNSPECIFIED SNOMED Code(s): 26075452 Comment: Mild decrease LVEF to 45-50% recent echo, BNP 189 05/16/17. (4) Protein calorie malnutrition Current Visit: Yes Status: Acute Code(s): E46 - UNSPECIFIED PROTEIN-CALORIE MALNUTRITION SNOMED Code(s): 791691263 Comment: Severe Pre albumin <5 >10% weight loss in 4 months (son estimates lost 30 lbs) (5) Non-alcoholic cirrhosis Current Visit: Yes Status: Acute Comment: Low albumin, baseline high INR and marked response to warfarin related to hepatic dysfunciton as well as malnutriiton. Ammonia level urgent request 05/20, would consider lactulose a comfort measure level is high. (6) Hypothyroidism Current Visit: Yes Status: Chronic Priority: Medium Code(s): E03.9 - HYPOTHYROIDISM, UNSPECIFIED SNOMED Code(s): 75527269 Comment: Continue current dose of levothyroxine. TSH wnl 05/16/17. (7) End of life care Current Visit: Yes Status: Acute Code(s): Z51.5 - ENCOUNTER FOR PALLIATIVE CARE SNOMED Code(s): 793758761 Comment: Palliative care consult requested. Status and Disposition: Severe debility. Plan on placement in (at least) short term rehab. Pt and family in agreement.
[2017-05-20] MEDS: Ursodiol CAP* 300 MG PO SCH (21:02)
--- NOTE | 2017-05-21 01:55 | CONS ---
CC: Gilson Roa MD; Wily Ann MD * PALLIATIVE CARE CONSULTATION: DATE OF CONSULTATION: 05/20/17 REFERRING PHYSICIAN: Wily Ann MD REASON FOR CONSULTATION: Evaluation for hospice. HOSPITAL COURSE: This is an 86-year-old female with a past medical history of COPD, not on oxygen, history of subarachnoid hemorrhage and anemia who presented to the emergency room on the with worsening shortness of breath. The patient was found to have a COPD exacerbation in addition to moderate clot burden pulmonary emboli on CTA. The patient was started on an anticoagulation with close monitor given the history of her upper GI bleed, esophageal varices, and subarachnoid hemorrhage. The patient's respiratory status has not improved much. She still remains on 4L. She had an echocardiogram done due to findings of ascites from her CTA and it showed an EF of 45% to 50%. The patient has been seen by physical therapy but has been unable to participate with therapy stating she is too tired and does not have the energy. On my encounter, her daughter Rosemarie and the patient are present. The patient states her breathing is okay. She understands that she needs to go to a long term. The daughter states that she has been living alone and between the children they have been checking in on her. They try to check on her daily, but it is more like every 2-3 days. They were recently discussing assisted living because of the fact they could not check on her daily, but she was able to be independent of her ADLs up until this admission. The patient is with significant amount of shortness of breath, difficulty just getting to the commode and as mentioned not able or willing to participate in physical therapy. She has poor appetite with some weight loss over the summer despite having fluid collection in her abdomen. I spoke with the patient regarding her goals of care. She wishes to be do not resuscitate/do not intubate and she under-stands that she needs to go to a long term. I also spoke with her about hospice and she deferred over daughter and her daughter was agreeable to that. The patient is interested in going into [place] as that is where most of her family resides. The patient currently denies any pain. No nausea. She is not sure when her last bowel movement was. Otherwise remaining review of systems is negative. PAST MEDICAL HISTORY: 1. COPD. 2. Congestive heart failure with ejection fraction 45% to 50%. 3. Diabetes. 4. Hypertension. 5. GERD. 6. Anemia. 7. History of subarachnoid hemorrhage. 8. History of esophageal varices. 9. History of LOPEZ. 10. History of upper GI bleed. 11. Hospital course complicated by findings of severe protein calorie malnutrition. 12. Ascites. 13. Now with pulmonary emboli. INPATIENT MEDICATIONS: 1. Albuterol 2.5 mg inhaled every 2 hours as needed. 2. [place] 1-2 tabs q.4 hours as needed. 3. Levothyroxine 88 mcg daily. 4. Mometasone/formoterol two puffs inhaled b.i.d. 5. Nadolol 20 mg p.o. daily. 6. Omeprazole 20 mg daily. 7. Zofran 4 mg IV q.6 hours as needed. 8. Prednisone 40 mg daily. 9. Tiotropium one cap inhaled daily. 10. Ursodiol 300 mg p.o. b.i.d. ALLERGIES: MORPHINE, rash. TRAMADOL, rash. SOCIAL HISTORY: As mentioned, the patient was living alone, independent of her ADLs. She was using a walker. Her children would check on her every two to three days and take her to appointments and do her grocery shopping for her. She has a 60-pack year history, still smoking 1-2 cigarettes per day. Her health care proxy is her son Karthik. Her code status is DNR/DNI. She has a total of four children. FAMILY HISTORY: Parents passed of old age. REVIEW OF SYSTEMS: A 14-point review of systems as mentioned, pertinent positives and negatives reviewed, as mentioned in the HPI otherwise negative. PHYSICAL EXAM: Vitals Signs: Temperature 97.8, pulse rate 66, respiratory rate 20, oxygen saturation 100% on 4L nasal cannula. Blood pressure 129/83. General: Frail elderly female in no acute distress. She is noted to have conversational dyspnea. HEENT: Head normocephalic. Pupils equal, reactive and anicteric. Oropharynx: Mucous membranes dry. Neck: supple. No lymphadenopathy. Cardiac: Regular rate and rhythm. Soft systolic murmur heard throughout. Respiratory: Diminished breath sounds, bilaterals crackles. Abdomen: Positive bowel sounds, distended, positive fluid wave, nontender. Extremities: No clubbing, cyanosis or edema. +2 DPs. Neurologic: Alert and oriented x3. No focal neurologic deficits. DIAGNOSTIC STUDIES/LABORATORY DATA: White count 8.2, hemoglobin 10.8, hematocrit 34, platelets 67. INR is 2.99. Sodium 142, potassium 4, chloride 105, bicarb 37, BUN 21, creatinine 0.4. Total bilirubin is 1.1, albumin 2.8. Radiographic Data: CTA shows moderate burden of acute pulmonary emboli most confluent with the upper lobe emphysema. Images of the upper abdomen are remarkable for large volume ascites, new compared to 2015. Partially visualized left kidney is remarkable for mild pelvic calyectasis, interval worsening of T12 vertebral body fracture involving the anterior and middle columns compared to August 2016, negative for significant resulting central canal stenosis. No visualized paravertebral hematoma. ASSESSMENT AND PLAN: This is an 86-year-old female with past medical history of chronic obstructive pulmonary disease and congestive heart failure, who presented to the emergency room with shortness of breath, and found to have significant clot burden and also found to have severe protein calorie malnutrition and large volume abdominal ascites. The patient has remained on 4L with difficulty weaning, not willing to participate in physical therapy. She is eligible for hospice with a principal diagnosis of hypoxic respiratory failure with COPD and pulmonary emboli with a secondary diagnosis of severe protein calorie malnutrition. I spoke with the family. I am going to follow up calling the son in the morning regarding hospice services. The patient and the daughter feel this is appropriate for her as she has not been interested in physical therapy and they are interested in going to [facility] with hospice services. We did discuss rehab as I mentioned I did not think it was beneficial for her and she has not been able to participate here in the hospital and the patient and the daughter agree. I will follow up with the son in the morning to confirm that long term in [place] with hospice services is appropriate and that he agrees to this as well. Thank you for this consultation. I will follow along with you. TIME SPENT: Greater than 90 minutes spent doing the consultation, more than half the time was spent in direct patient contact. [id number]/CPS #: [id number] ALECIA
[2017-05-21] MEDS: Omeprazole CAP* 20 MG PO SCH (06:04)
[2017-05-21] MEDS: Levothyroxine TAB* 88 MCG TAB PO SCH (06:04)
[2017-05-21] MEDS: Insulin LISPRO* 1 UNITS UNIT SUBCUT SCH ×2 (08:08→12:29)
[2017-05-21] MEDS: Nadolol TAB* 40 MG PO SCH (08:18)
[2017-05-21] MEDS: Ursodiol CAP* 300 MG PO SCH ×2 (08:18→21:13)
[2017-05-21] MEDS ORDERED: predniSONE TAB* 20 MG PO SCH (09:00)
[2017-05-21] MEDS: Mometasone/Formoter 200/5 MDI INH SCH ×2 (09:20→19:55)
[2017-05-21] MEDS: Tiotropium CAP.INH* CAP.INH/18 MCG (USE ORDER SET !) INH SCH (09:20)
--- NOTE | 2017-05-21 14:51 | PN ---
Subjective Date of Service: 05/21/17 Interval History: She offers no c/o, denies pain. Objective Active Medications: Hydrocodone Bitart/Acetaminophen ([place] 5-325 Tab*) 1 tab PO Q4H PRN PRN Reason: PAIN Last Admin: 05/20/17 08:11 Dose: 1 tab Hydrocodone Bitart/Acetaminophen ([place] 5-325 Tab*) 2 tab PO Q4H PRN PRN Reason: PAIN Last Admin: 05/18/17 16:59 Dose: 2 tab Albuterol (Ventolin 2.5 Mg/3 Ml Neb.Jeane*) 2.5 mg INH Q2H PRN PRN Reason: SOB/WHEEZING Last Admin: 05/19/17 18:23 Dose: 2.5 mg Insulin Human Lispro (Humalog*) 0 units SUBCUT DAILY [facility] PRN Reason: Protocol Levothyroxine Sodium (Synthroid Tab*) 88 mcg PO DAILY@0600 [facility] Last Admin: 05/21/17 06:04 Dose: 88 mcg Mometasone Furoate/Formoterol Fumar (Dulera 200/5 Mdi*) 2 puff INH BID [facility] Last Admin: 05/21/17 09:20 Dose: 2 puff Nadolol (Corgard Tab*) 20 mg PO DAILY [facility] Last Admin: 05/21/17 08:18 Dose: 20 mg Omeprazole (Prilosec Cap*) 20 mg PO DAILY@0600 [facility] Last Admin: 05/21/17 06:04 Dose: 20 mg Ondansetron HCl (Zofran Inj*) 4 mg IV Q6H PRN PRN Reason: NAUSEA Prednisone (Deltasone Tab*) 30 mg PO DAILY [facility] Tiotropium [place] (Spiriva Cap.Inh*) 1 cap INH DAILY [facility] Last Admin: 05/21/17 09:20 Dose: 1 cap Ursodiol (Actigall Cap*) 300 mg PO BID [facility] Last Admin: 05/21/17 08:18 Dose: 300 mg Vital Signs 05/20/17 05/20/17 05/20/17 15:37 19:09 20:00 Temperature 97.8 F Pulse Rate 66 65 66 Respiratory 20 16 18 Rate Blood Pressure 126/82 129/83 (mmHg) O2 Sat by Pulse 100 98 100 Oximetry 05/20/17 05/20/17 05/20/17 20:10 23:27 23:57 Temperature Pulse Rate 71 Respiratory 17 Rate Blood Pressure 128/66 (mmHg) O2 Sat by Pulse 100 95 95 Oximetry 05/21/17 05/21/17 05/21/17 04:29 08:00 08:26 Temperature 97.4 F 97.4 F Pulse Rate 74 81 Respiratory 18 18 21 Rate Blood Pressure 104/64 149/83 (mmHg) O2 Sat by Pulse 98 92 92 Oximetry 05/21/17 05/21/17 05/21/17 09:23 11:22 11:37 Temperature Pulse Rate 58 Respiratory 16 Rate Blood Pressure 126/53 (mmHg) O2 Sat by Pulse 92 92 100 Oximetry Oxygen Devices in Use Now: Nasal Cannula Appearance: Alert, supine in bed. Neutral affect, looks comfortable but weak. Respiratory: Symmetrical Chest Expansion and Respiratory Effort, Clear to Auscultation, Clear to Percussion Cardiovascular: NL Sounds; No Murmurs; No JVD, RRR, No Edema, - Extremities: No Edema, No Clubbing, Cyanosis, - Skin: No Rash or Ulcers, No Nodules or Sclerosis, - Neurological: NL Sensation - Passive, weak. Fair eye contact. No tremor. Result Diagrams: 05/18/17 07:02 05/17/17 06:26 Additional Lab and Data: Lab Results 05/16/17 05/16/17 05/16/17 Range/Units 21:41 21:41 21:41 WBC 7.7 (3.5-10.8) 10^3/ul RBC 4.43 (4.0-5.4) 10^6/ul Hgb 12.2 (12.0-16.0) g/dl Hct 39 (35-47) % MCV 87 (80-97) fL MCH 28 (27-31) pg MCHC 32 (31-36) g/dl RDW 17 H (10.5-15) % Plt Count 98 L (150-450) 10^3/ul MPV 9 (7.4-10.4) um3 Neut % (Auto) 72.8 (38-83) % Lymph % (Auto) 17.8 L (25-47) % [place] % (Auto) 7.8 (1-9) % Eos % (Auto) 1.2 (0-6) % Baso % (Auto) 0.4 (0-2) % Absolute Neuts (auto) 5.6 (1.5-7.7) 10^3/ul Absolute Lymphs (auto) 1.4 (1.0-4.8) 10^3/ul Absolute Monos (auto) 0.6 (0-0.8) 10^3/ul Absolute Eos (auto) 0.1 (0-0.6) 10^3/ul Absolute Basos (auto) 0 (0-0.2) 10^3/ul Absolute Nucleated RBC 0.01 10^3/ul Nucleated RBC % 0.1 Sodium 140 (133-145) mmol/L Potassium 3.7 (3.5-5.0) mmol/L Chloride 103 (101-111) mmol/L Carbon Dioxide 35 H (22-32) mmol/L Anion Gap 2 (2-11) mmol/L BUN 20 (6-24) mg/dL Creatinine 0.40 L (0.51-0.95) mg/dL Est GFR ( Amer) 194.6 (>60) Est GFR (Non-Af Amer) 151.3 (>60) BUN/Creatinine Ratio 50.0 H (8-20) Glucose 122 H (70-100) mg/dL Calcium 9.6 (8.6-10.3) mg/dL Magnesium 1.3 L (1.9-2.7) mg/dL Total Bilirubin 1.40 H (0.2-1.0) mg/dL AST 39 (13-39) U/L ALT 21 (7-52) U/L Alkaline Phosphatase 130 H (34-104) U/L Troponin I 0.01 (<0.04) ng/mL B-Natriuretic Peptide 189 H ( - 100) pg/mL Total Protein 6.7 (6.4-8.9) g/dL Albumin 2.8 L (3.2-5.2) g/dL Globulin 3.9 (2-4) g/dL Albumin/Globulin Ratio 0.7 L (1-3) TSH 0.38 (0.34-5.60) mcIU/mL Urine Color Urine Appearance Urine pH (5-9) Ur Specific [place] (1.010-1.030) Urine Protein (Negative) Urine Ketones (Negative) Urine Blood (Negative) Urine Nitrate (Negative) Urine Bilirubin (Negative) Urine Urobilinogen (Negative) Ur Leukocyte Esterase (Negative) Urine Glucose (Negative) Urine Ascorbic Acid (Negative) 05/16/17 Range/Units 22:20 WBC (3.5-10.8) 10^3/ul RBC (4.0-5.4) 10^6/ul Hgb (12.0-16.0) g/dl Hct (35-47) % MCV (80-97) fL MCH (27-31) pg MCHC (31-36) g/dl RDW (10.5-15) % Plt Count (150-450) 10^3/ul MPV (7.4-10.4) um3 Neut % (Auto) (38-83) % Lymph % (Auto) (25-47) % [place] % (Auto) (1-9) % Eos % (Auto) (0-6) % Baso % (Auto) (0-2) % Absolute Neuts (auto) (1.5-7.7) 10^3/ul Absolute Lymphs (auto) (1.0-4.8) 10^3/ul Absolute Monos (auto) (0-0.8) 10^3/ul Absolute Eos (auto) (0-0.6) 10^3/ul Absolute Basos (auto) (0-0.2) 10^3/ul Absolute Nucleated RBC 10^3/ul Nucleated RBC % Sodium (133-145) mmol/L Potassium (3.5-5.0) mmol/L Chloride (101-111) mmol/L Carbon Dioxide (22-32) mmol/L Anion Gap (2-11) mmol/L BUN (6-24) mg/dL Creatinine (0.51-0.95) mg/dL Est GFR ( Amer) (>60) Est GFR (Non-Af Amer) (>60) BUN/Creatinine Ratio (8-20) Glucose (70-100) mg/dL Calcium (8.6-10.3) mg/dL Magnesium (1.9-2.7) mg/dL Total Bilirubin (0.2-1.0) mg/dL AST (13-39) U/L ALT (7-52) U/L Alkaline Phosphatase (34-104) U/L Troponin I (<0.04) ng/mL B-Natriuretic Peptide ( - 100) pg/mL Total Protein (6.4-8.9) g/dL Albumin (3.2-5.2) g/dL Globulin (2-4) g/dL Albumin/Globulin Ratio (1-3) TSH (0.34-5.60) mcIU/mL Urine Color Bia Urine Appearance Clear Urine pH 5.0 (5-9) Ur Specific [place] 1.024 (1.010-1.030) Urine Protein Negative (Negative) Urine Ketones Trace H (Negative) Urine Blood Negative (Negative) Urine Nitrate Negative (Negative) Urine Bilirubin Negative (Negative) Urine Urobilinogen Positive H (Negative) Ur Leukocyte Esterase Negative (Negative) Urine Glucose 1+(50 mg/dl) H (Negative) Urine Ascorbic Acid * H (Negative) Assess/Plan/Problems-Billing Assessment: 86 yo F with h/o upper GIB, esophageal varices, cirrhosis (no h/o alcohol), SAH 2013, significant weight loss and decreased energy x 4 months presents with increasing sob over the last 3 days found with PEs - Patient Problems (1) Pulmonary embolism Current Visit: Yes Status: Acute Code(s): I26.99 - OTHER PULMONARY EMBOLISM WITHOUT ACUTE COR PULMONALE SNOMED Code(s): 21431825 Comment: INR 2.99 after one dose wafarin 5 mg. Stop warfarin and enoxaparin. INR likely will be over 2 for many days. I discussed palliative care with the son on both 05/20 and 05/21 and he was very receptive to this. (2) COPD (chronic obstructive pulmonary disease) Current Visit: Yes Status: Chronic Priority: Medium Code(s): J44.9 - CHRONIC OBSTRUCTIVE PULMONARY DISEASE, UNSPECIFIED SNOMED Code(s): 95910513 Comment: Prednisone to start 05/21, recievied IV steroids already. Taper, to get 30 mg 05/22. dulera (3) CHF (congestive heart failure) Current Visit: Yes Status: Acute Code(s): I50.9 - HEART FAILURE, UNSPECIFIED SNOMED Code(s): 28540385 Comment: Mild decrease LVEF to 45-50% recent echo, BNP 189 05/16/17. (4) Protein calorie malnutrition Current Visit: Yes Status: Acute Code(s): E46 - UNSPECIFIED PROTEIN-CALORIE MALNUTRITION SNOMED Code(s): 698432116 Comment: Severe Pre albumin <5 >10% weight loss in 4 months (son estimates lost 30 lbs) (5) Non-alcoholic cirrhosis Current Visit: Yes Status: Acute Comment: Low albumin, baseline high INR and marked response to warfarin related to hepatic dysfunciton as well as malnutriiton. Ammonia level 56 on 05/20, not likely a major factor in her clinical course. Not clear that side effects of tx would be less than the benefits. (6) Hypothyroidism Current Visit: Yes Status: Chronic Priority: Medium Code(s): E03.9 - HYPOTHYROIDISM, UNSPECIFIED SNOMED Code(s): 98341480 Comment: Continue current dose of levothyroxine. TSH wnl 05/16/17. (7) End of life care Current Visit: Yes Status: Acute Code(s): Z51.5 - ENCOUNTER FOR PALLIATIVE CARE SNOMED Code(s): 745730678 Comment: Palliative care consult requested. Discussed with Dr. plata 05/21-- pt is elgible for Hospice services. Status and Disposition: Severe debility. Plan on placement in (at least) short term rehab. Pt and family in agreement.
[2017-05-22] MEDS: Omeprazole CAP* 20 MG PO SCH (06:17)
[2017-05-22] MEDS: Levothyroxine TAB* 88 MCG TAB PO SCH (06:17)
[2017-05-22] MEDS: Ursodiol CAP* 300 MG PO SCH ×2 (08:05→19:16)
[2017-05-22] MEDS: Nadolol TAB* 40 MG PO SCH (08:06)
[2017-05-22] MEDS ORDERED: Insulin LISPRO* 1 UNITS UNIT SUBCUT SCH (09:00)
[2017-05-22] MEDS ORDERED: predniSONE TAB* 10 MG PO SCH (09:00)
[2017-05-22] MEDS ORDERED: predniSONE TAB* 20 MG PO SCH (09:00)
--- NOTE | 2017-05-22 09:20 | PN ---
Subjective Date of Service: 05/22/17 Interval History: No c/o. Objective Active Medications: Hydrocodone Bitart/Acetaminophen ([place] 5-325 Tab*) 1 tab PO Q4H PRN PRN Reason: PAIN Last Admin: 05/20/17 08:11 Dose: 1 tab Hydrocodone Bitart/Acetaminophen ([place] 5-325 Tab*) 2 tab PO Q4H PRN PRN Reason: PAIN Last Admin: 05/18/17 16:59 Dose: 2 tab Albuterol (Ventolin 2.5 Mg/3 Ml Neb.Jeane*) 2.5 mg INH Q2H PRN PRN Reason: SOB/WHEEZING Last Admin: 05/19/17 18:23 Dose: 2.5 mg Insulin Human Lispro (Humalog*) 0 units SUBCUT DAILY [facility] PRN Reason: Protocol Last Admin: 05/22/17 07:25 Dose: Not Given Levothyroxine Sodium (Synthroid Tab*) 88 mcg PO DAILY@0600 [facility] Last Admin: 05/22/17 06:17 Dose: 88 mcg Mometasone Furoate/Formoterol Fumar (Dulera 200/5 Mdi*) 2 puff INH BID [facility] Last Admin: 05/21/17 19:55 Dose: 2 puff Nadolol (Corgard Tab*) 20 mg PO DAILY [facility] Last Admin: 05/22/17 08:06 Dose: 20 mg Omeprazole (Prilosec Cap*) 20 mg PO DAILY@0600 [facility] Last Admin: 05/22/17 06:17 Dose: 20 mg Ondansetron HCl (Zofran Inj*) 4 mg IV Q6H PRN PRN Reason: NAUSEA Prednisone (Deltasone Tab*) 30 mg PO DAILY [facility] Last Admin: 05/22/17 08:06 Dose: 30 mg Tiotropium [place] (Spiriva Cap.Inh*) 1 cap INH DAILY [facility] Last Admin: 05/21/17 09:20 Dose: 1 cap Ursodiol (Actigall Cap*) 300 mg PO BID [facility] Last Admin: 05/22/17 08:05 Dose: 300 mg Vital Signs 05/21/17 05/21/17 05/21/17 09:23 11:22 11:37 Temperature Pulse Rate 58 Respiratory 16 Rate Blood Pressure 126/53 (mmHg) O2 Sat by Pulse 92 92 100 Oximetry 1105/21/17 05/21/17 15:39 20:17 23:34 Temperature 98.1 F 97.4 F 97.5 F Pulse Rate 82 72 73 Respiratory 27 24 16 Rate Blood Pressure 132/69 134/72 116/55 (mmHg) O2 Sat by Pulse 100 98 100 Oximetry 05/22/17 05/22/17 05/22/17 01:33 03:07 06:51 Temperature 98.4 F 98.6 F Pulse Rate 63 62 Respiratory 16 16 16 Rate Blood Pressure 118/51 115/39 (mmHg) O2 Sat by Pulse 99 95 Oximetry 05/22/17 05/22/17 07:25 07:26 Temperature Pulse Rate Respiratory 14 Rate Blood Pressure (mmHg) O2 Sat by Pulse 95 Oximetry Oxygen Devices in Use Now: Nasal Cannula Appearance: Alert, sitting up in bed. In fair spirits, looks a little stronger , more alert today. Looks comfortable. Eyes: No Scleral Icterus Extremities: No Edema, No Clubbing, Cyanosis, - Skin: No Rash or Ulcers, No Nodules or Sclerosis, - Neurological: NL Sensation - Daughter at bedside, thinks patient's mentation is normal today. , - Result Diagrams: 05/18/17 07:02 05/17/17 06:26 Additional Lab and Data: Lab Results 05/16/17 05/16/17 05/16/17 Range/Units 21:41 21:41 21:41 WBC 7.7 (3.5-10.8) 10^3/ul RBC 4.43 (4.0-5.4) 10^6/ul Hgb 12.2 (12.0-16.0) g/dl Hct 39 (35-47) % MCV 87 (80-97) fL MCH 28 (27-31) pg MCHC 32 (31-36) g/dl RDW 17 H (10.5-15) % Plt Count 98 L (150-450) 10^3/ul MPV 9 (7.4-10.4) um3 Neut % (Auto) 72.8 (38-83) % Lymph % (Auto) 17.8 L (25-47) % [place] % (Auto) 7.8 (1-9) % Eos % (Auto) 1.2 (0-6) % Baso % (Auto) 0.4 (0-2) % Absolute Neuts (auto) 5.6 (1.5-7.7) 10^3/ul Absolute Lymphs (auto) 1.4 (1.0-4.8) 10^3/ul Absolute Monos (auto) 0.6 (0-0.8) 10^3/ul Absolute Eos (auto) 0.1 (0-0.6) 10^3/ul Absolute Basos (auto) 0 (0-0.2) 10^3/ul Absolute Nucleated RBC 0.01 10^3/ul Nucleated RBC % 0.1 Sodium 140 (133-145) mmol/L Potassium 3.7 (3.5-5.0) mmol/L Chloride 103 (101-111) mmol/L Carbon Dioxide 35 H (22-32) mmol/L Anion Gap 2 (2-11) mmol/L BUN 20 (6-24) mg/dL Creatinine 0.40 L (0.51-0.95) mg/dL Est GFR ( Amer) 194.6 (>60) Est GFR (Non-Af Amer) 151.3 (>60) BUN/Creatinine Ratio 50.0 H (8-20) Glucose 122 H (70-100) mg/dL Calcium 9.6 (8.6-10.3) mg/dL Magnesium 1.3 L (1.9-2.7) mg/dL Total Bilirubin 1.40 H (0.2-1.0) mg/dL AST 39 (13-39) U/L ALT 21 (7-52) U/L Alkaline Phosphatase 130 H (34-104) U/L Troponin I 0.01 (<0.04) ng/mL B-Natriuretic Peptide 189 H ( - 100) pg/mL Total Protein 6.7 (6.4-8.9) g/dL Albumin 2.8 L (3.2-5.2) g/dL Globulin 3.9 (2-4) g/dL Albumin/Globulin Ratio 0.7 L (1-3) TSH 0.38 (0.34-5.60) mcIU/mL Urine Color Urine Appearance Urine pH (5-9) Ur Specific [place] (1.010-1.030) Urine Protein (Negative) Urine Ketones (Negative) Urine Blood (Negative) Urine Nitrate (Negative) Urine Bilirubin (Negative) Urine Urobilinogen (Negative) Ur Leukocyte Esterase (Negative) Urine Glucose (Negative) Urine Ascorbic Acid (Negative) 05/16/17 Range/Units 22:20 WBC (3.5-10.8) 10^3/ul RBC (4.0-5.4) 10^6/ul Hgb (12.0-16.0) g/dl Hct (35-47) % MCV (80-97) fL MCH (27-31) pg MCHC (31-36) g/dl RDW (10.5-15) % Plt Count (150-450) 10^3/ul MPV (7.4-10.4) um3 Neut % (Auto) (38-83) % Lymph % (Auto) (25-47) % [place] % (Auto) (1-9) % Eos % (Auto) (0-6) % Baso % (Auto) (0-2) % Absolute Neuts (auto) (1.5-7.7) 10^3/ul Absolute Lymphs (auto) (1.0-4.8) 10^3/ul Absolute Monos (auto) (0-0.8) 10^3/ul Absolute Eos (auto) (0-0.6) 10^3/ul Absolute Basos (auto) (0-0.2) 10^3/ul Absolute Nucleated RBC 10^3/ul Nucleated RBC % Sodium (133-145) mmol/L Potassium (3.5-5.0) mmol/L Chloride (101-111) mmol/L Carbon Dioxide (22-32) mmol/L Anion Gap (2-11) mmol/L BUN (6-24) mg/dL Creatinine (0.51-0.95) mg/dL Est GFR ( Amer) (>60) Est GFR (Non-Af Amer) (>60) BUN/Creatinine Ratio (8-20) Glucose (70-100) mg/dL Calcium (8.6-10.3) mg/dL Magnesium (1.9-2.7) mg/dL Total Bilirubin (0.2-1.0) mg/dL AST (13-39) U/L ALT (7-52) U/L Alkaline Phosphatase (34-104) U/L Troponin I (<0.04) ng/mL B-Natriuretic Peptide ( - 100) pg/mL Total Protein (6.4-8.9) g/dL Albumin (3.2-5.2) g/dL Globulin (2-4) g/dL Albumin/Globulin Ratio (1-3) TSH (0.34-5.60) mcIU/mL Urine Color Bia Urine Appearance Clear Urine pH 5.0 (5-9) Ur Specific [place] 1.024 (1.010-1.030) Urine Protein Negative (Negative) Urine Ketones Trace H (Negative) Urine Blood Negative (Negative) Urine Nitrate Negative (Negative) Urine Bilirubin Negative (Negative) Urine Urobilinogen Positive H (Negative) Ur Leukocyte Esterase Negative (Negative) Urine Glucose 1+(50 mg/dl) H (Negative) Urine Ascorbic Acid * H (Negative) Assess/Plan/Problems-Billing Assessment: 86 yo F with h/o upper GIB, esophageal varices, cirrhosis (no h/o alcohol), SAH 2013, significant weight loss and decreased energy x 4 months presents with increasing sob over the last 3 days found with PEs - Patient Problems (1) Pulmonary embolism Current Visit: Yes Status: Acute Code(s): I26.99 - OTHER PULMONARY EMBOLISM WITHOUT ACUTE COR PULMONALE SNOMED Code(s): 01087634 Comment: INR 2.99 after one dose wafarin 5 mg. Stop warfarin and enoxaparin. INR likely will be over 2 for many days. I discussed palliative care with the son on both 05/20 and 05/21 and he was very receptive to this. With hx bleeding dsophageal varices and SAH in 2013, anticoagulation may not be of benefit to her especially in view of her prognosis and wish for comfort measures. (2) COPD (chronic obstructive pulmonary disease) Current Visit: Yes Status: Chronic Priority: Medium Code(s): J44.9 - CHRONIC OBSTRUCTIVE PULMONARY DISEASE, UNSPECIFIED SNOMED Code(s): 95144338 Comment: Prednisone to start 05/21, recievied IV steroids already. Taper, to get 20 mg 05/23. dulera (3) CHF (congestive heart failure) Current Visit: Yes Status: Acute Code(s): I50.9 - HEART FAILURE, UNSPECIFIED SNOMED Code(s): 63733092 Comment: Mild decrease LVEF to 45-50% recent echo, BNP 189 05/16/17. (4) Protein calorie malnutrition Current Visit: Yes Status: Acute Code(s): E46 - UNSPECIFIED PROTEIN-CALORIE MALNUTRITION SNOMED Code(s): 109793638 Comment: Severe Pre albumin <5 >10% weight loss in 4 months (son estimates lost 30 lbs) (5) Non-alcoholic cirrhosis Current Visit: Yes Status: Acute Comment: Low albumin, baseline high INR and marked response to warfarin related to hepatic dysfunciton as well as malnutriiton. Ammonia level 56 on 05/20, not likely a major factor in her clinical course. Not clear that side effects of tx would be less than the benefits. (6) Hypothyroidism Current Visit: Yes Status: Chronic Priority: Medium Code(s): E03.9 - HYPOTHYROIDISM, UNSPECIFIED SNOMED Code(s): 60582769 Comment: Continue current dose of levothyroxine. TSH wnl 05/16/17. (7) End of life care Current Visit: Yes Status: Acute Code(s): Z51.5 - ENCOUNTER FOR PALLIATIVE CARE SNOMED Code(s): 680806939 Comment: Palliative care consult requested. Discussed with Dr. plata 05/21-- pt is elgible for Hospice services. Status and Disposition: Severe debility. Plan on placement in (at least) short term rehab. Pt and family in agreement.
[2017-05-22] MEDS: Tiotropium CAP.INH* CAP.INH/18 MCG (USE ORDER SET !) INH SCH (09:58)
[2017-05-22] MEDS: Mometasone/Formoter 200/5 MDI INH SCH ×2 (09:59→21:16)
[2017-05-23] MEDS: Omeprazole CAP* 20 MG PO SCH (06:00)
[2017-05-23] MEDS: Levothyroxine TAB* 88 MCG TAB PO SCH (06:00)
--- NOTE | 2017-05-23 08:22 | PN ---
Subjective Date of Service: 05/23/17 Interval History: HOSPITALIST PROGRESS NOTE Patient seen and examined at bedside. She's sound asleep, did not answer when called or touched. Family History: Unchanged from Admission Social History: Unchanged from Admission Past Medical History: Unchanged from Admission Objective Active Medications: Hydrocodone Bitart/Acetaminophen ([place] 5-325 Tab*) 1 tab PO Q4H PRN PRN Reason: PAIN Last Admin: 05/20/17 08:11 Dose: 1 tab Hydrocodone Bitart/Acetaminophen ([place]gar 5-325 Tab*) 2 tab PO Q4H PRN PRN Reason: PAIN Last Admin: 05/18/17 16:59 Dose: 2 tab Albuterol (Ventolin 2.5 Mg/3 Ml Neb.Jeane*) 2.5 mg INH Q2H PRN PRN Reason: SOB/WHEEZING Last Admin: 05/19/17 18:23 Dose: 2.5 mg Levothyroxine Sodium (Synthroid Tab*) 88 mcg PO DAILY@0600 [facility] Last Admin: 05/23/17 06:00 Dose: 88 mcg Mometasone Furoate/Formoterol Fumar (Dulera 200/5 Mdi*) 2 puff INH BID [facility] Last Admin: 05/22/17 21:16 Dose: 2 puff Nadolol (Corgard Tab*) 20 mg PO DAILY [facility] Last Admin: 05/22/17 08:06 Dose: 20 mg Omeprazole (Prilosec Cap*) 20 mg PO DAILY@0600 [facility] Last Admin: 05/23/17 06:00 Dose: 20 mg Ondansetron HCl (Zofran Inj*) 4 mg IV Q6H PRN PRN Reason: NAUSEA Prednisone (Deltasone Tab*) 20 mg PO DAILY [facility] Tiotropium [place] (Spiriva Cap.Inh*) 1 cap INH DAILY [facility] Last Admin: 05/22/17 09:58 Dose: 1 cap Ursodiol (Actigall Cap*) 300 mg PO BID [facility] Last Admin: 05/22/17 19:16 Dose: 300 mg Vital Signs 05/23/17 05/23/17 03:36 07:38 Temperature 97.6 F 97.4 F Pulse Rate 61 61 Respiratory 20 19 Rate Blood Pressure 109/53 111/58 (mmHg) O2 Sat by Pulse 98 97 Oximetry Oxygen Devices in Use Now: Nasal Cannula - 4 liters Appearance: Elderly frail lady lying in bed in NAD. Eyes: No Scleral Icterus Ears/Nose/Mouth/Throat: Mucous Membranes Moist Neck: Trachea Midline Respiratory: Symmetrical Chest Expansion and Respiratory Effort, Clear to Auscultation Cardiovascular: RRR - Normal S1 and S2 Neurological: - - Sleeping, did not awake when called or touched. Nutrition: Taking PO's Result Diagrams: 05/18/17 07:02 05/17/17 06:26 Assess/Plan/Problems-Billing Assessment: Mrs. Anaya is an 86 yo F with PMH of upper GIB, esophageal varices, cirrhosis (no h/o alcohol), SAH 2014, significant weight loss and decreased energy x 4 months presents with increasing sob over the last 3 days found to have PEs. - Patient Problems (1) Pulmonary embolism Comment: - Anticoagulation was discontinued as goal now is for comfort. - With history of bleeding esophageal varices and SAH in 2013, anticoagulation may not be of benefit to her especially in view of her prognosis and wish for comfort measures. (2) COPD (chronic obstructive pulmonary disease) Comment: - Continue prednisone taper and Dulera. (3) CHF (congestive heart failure) Comment: - Mild decrease LVEF to 45-50% recent echo - chronic compensated diastolic CHF. (4) Protein calorie malnutrition Comment: - Severe, with prealbumin <5 and estimated 30 lbs weight loss. (5) End of life care Comment: - Palliative care consult appreciated. (6) Non-alcoholic cirrhosis Comment: - Low albumin, baseline high INR and marked response to warfarin related to hepatic dysfunciton as well as malnutriiton. (7) DNR (do not resuscitate) Status and Disposition: Anticipate d/c to SNF with Hospice or to [facility].
[2017-05-23] MEDS ORDERED: predniSONE TAB* 10 MG PO SCH (09:00)
[2017-05-23] MEDS: Ursodiol CAP* 300 MG PO SCH ×2 (09:18→20:14)
[2017-05-23] MEDS: Nadolol TAB* 40 MG PO SCH (09:18)
[2017-05-23] MEDS: Mometasone/Formoter 200/5 MDI INH SCH ×2 (09:45→20:00)
[2017-05-23] MEDS: Tiotropium CAP.INH* CAP.INH/18 MCG (USE ORDER SET !) INH SCH (09:47)
[2017-05-24] MEDS: Levothyroxine TAB* 88 MCG TAB PO SCH (05:42)
[2017-05-24] MEDS: Omeprazole CAP* 20 MG PO SCH (05:42)
--- NOTE | 2017-05-24 08:27 | PN ---
Subjective Date of Service: 05/24/17 Interval History: HOSPITALIST PROGRESS NOTE Patient seen and examined at bedside. Offers no complaints today. FS was 64 earlier today, but asymptomatic. Up to 98 after drinking orange juice. Family History: Unchanged from Admission Social History: Unchanged from Admission Past Medical History: Unchanged from Admission Objective Active Medications: Hydrocodone Bitart/Acetaminophen ([place] 5-325 Tab*) 1 tab PO Q4H PRN PRN Reason: PAIN Last Admin: 05/20/17 08:11 Dose: 1 tab Hydrocodone Bitart/Acetaminophen ([place] 5-325 Tab*) 2 tab PO Q4H PRN PRN Reason: PAIN Last Admin: 05/18/17 16:59 Dose: 2 tab Albuterol (Ventolin 2.5 Mg/3 Ml Neb.Jeane*) 2.5 mg INH Q2H PRN PRN Reason: SOB/WHEEZING Last Admin: 05/19/17 18:23 Dose: 2.5 mg Levothyroxine Sodium (Synthroid Tab*) 88 mcg PO DAILY@0600 [facility] Last Admin: 05/24/17 05:42 Dose: 88 mcg Mometasone Furoate/Formoterol Fumar (Dulera 200/5 Mdi*) 2 puff INH BID [facility] Last Admin: 05/23/17 20:00 Dose: 2 puff Nadolol (Corgard Tab*) 20 mg PO DAILY [facility] Last Admin: 05/23/17 09:18 Dose: 20 mg Omeprazole (Prilosec Cap*) 20 mg PO DAILY@0600 [facility] Last Admin: 05/24/17 05:42 Dose: 20 mg Ondansetron HCl (Zofran Inj*) 4 mg IV Q6H PRN PRN Reason: NAUSEA Prednisone (Deltasone Tab*) 10 mg PO DAILY [facility] Tiotropium [place] (Spiriva Cap.Inh*) 1 cap INH DAILY [facility] Last Admin: 05/23/17 09:47 Dose: 1 cap Ursodiol (Actigall Cap*) 300 mg PO BID [facility] Last Admin: 05/23/17 20:14 Dose: 300 mg Vital Signs 05/24/17 05/24/17 05/24/17 07:40 08:00 08:03 Temperature 97.4 F Pulse Rate 63 Respiratory 16 16 Rate Blood Pressure 113/55 (mmHg) O2 Sat by Pulse 90 94 94 Oximetry Oxygen Devices in Use Now: Nasal Cannula Appearance: Elderly frail lady lying in bed in NAD. Eyes: No Scleral Icterus Ears/Nose/Mouth/Throat: Mucous Membranes Moist Neck: Trachea Midline Respiratory: Symmetrical Chest Expansion and Respiratory Effort, Clear to Auscultation Cardiovascular: RRR - Normal S1 and S2 Neurological: Alert and Oriented x 3, NL Muscle Strength and Tone Lines/Tubes/Other Access: Clean, Dry and Intact Peripheral IV Nutrition: Taking PO's Result Diagrams: 05/18/17 07:02 05/17/17 06:26 Assess/Plan/Problems-Billing Assessment: Mrs. Anaya is an 86 yo F with PMH of upper GIB, esophageal varices, cirrhosis (no h/o alcohol), SAH 2013, significant weight loss and decreased energy x 4 months presents with increasing sob over the last 3 days found to have PEs. - Patient Problems (1) Hypoglycemia Comment: - Will change diet to regular and encourage PO intake. (2) Pulmonary embolism Comment: - Anticoagulation was discontinued as goal now is for comfort. - With history of bleeding esophageal varices and SAH in 2013, anticoagulation may not be of benefit to her especially in view of her prognosis and wish for comfort measures. (3) COPD (chronic obstructive pulmonary disease) Comment: - Continue prednisone taper and Dulera. (4) CHF (congestive heart failure) Comment: - Mild decrease LVEF to 45-50% on recent echo - chronic compensated diastolic CHF. (5) Protein calorie malnutrition Comment: - Severe, with prealbumin <5 and estimated 30 lbs weight loss. (6) Non-alcoholic cirrhosis Comment: - Low albumin, baseline high INR and marked response to warfarin related to hepatic dysfunciton as well as malnutriiton. (7) End of life care Comment: - Palliative care consult appreciated. (8) DNR (do not resuscitate) Status and Disposition: Anticipate d/c to SNF with Hospice or to [facility].
[2017-05-24] MEDS: Tiotropium CAP.INH* CAP.INH/18 MCG (USE ORDER SET !) INH SCH (08:33)
[2017-05-24] MEDS: Mometasone/Formoter 200/5 MDI INH SCH ×2 (08:34→20:04)
[2017-05-24] MEDS: Nadolol TAB* 40 MG PO SCH (09:37)
[2017-05-24] MEDS: Ursodiol CAP* 300 MG PO SCH ×2 (09:37→20:28)
[2017-05-24] MEDS: predniSONE TAB* 10 MG PO SCH (09:38)
[2017-05-24] MEDS: HYDROcodone/ACETAMIN 5-325 MG* 1 TAB PO PRN (19:30)
[2017-05-25] MEDS: Levothyroxine TAB* 88 MCG TAB PO SCH (05:02)
[2017-05-25] MEDS: Omeprazole CAP* 20 MG PO SCH (05:02)
[2017-05-25 08:43] VITALS: BP 127/100
[2017-05-25] MEDS: Mometasone/Formoter 200/5 MDI INH SCH (08:47)
[2017-05-25] MEDS: Tiotropium CAP.INH* CAP.INH/18 MCG (USE ORDER SET !) INH SCH (08:48)
[2017-05-25] MEDS: Ursodiol CAP* 300 MG PO SCH (08:51)
[2017-05-25] MEDS: Nadolol TAB* 40 MG PO SCH (08:51)
[2017-05-25] MEDS: predniSONE TAB* 10 MG PO SCH (08:52)
--- NOTE | 2017-05-25 12:05 | DS ---
CC: Dr. Roa; Dr. Joy Kim; [facility] DATE OF ADMISSION: 05/16/2017. DATE OF DISCHARGE: 05/25/2017. DISCHARGE DIAGNOSES: 1. Pulmonary embolism. 2. Severe protein calorie malnutrition. 3. Mild COPD exacerbation. SECONDARY DIAGNOSES: 1. COPD. 2. Chronic compensated diastolic congestive heart failure. 3. Type 2 diabetes. 4. Hypertension. 5. GERD. 6. Anemia. 7. History of subarachnoid hemorrhage. 8. History of portal hypertension with esophageal varices and upper GI bleed. 9. Liver cirrhosis secondary to LOPEZ. 10. Ascites. MEDICATIONS AT THE TIME OF TRANSFER: 1. Acetaminophen 325 mg p.o. at bedtime as needed for pain. 2. Albuterol 2.5 mg nebulized q.2 hours prn shortness of breath. 3. Vitamin C 250 mg p.o. b.i.d. 4. Hydrocodone/acetaminophen 5/325 mg one tablet p.o. q.4 hours prn pain, MDD 6 tablets. 5. Levothyroxine 88 mcg p.o. daily. 6. Meclizine 25 mg p.o. q.6 hours prn vertigo. 7. Nadolol 20 mg p.o. daily. 8. Omeprazole 20 mg p.o. b.i.d. 9. Spiriva one capsule inhaled daily. 10. Ursodiol 300 mg p.o. b.i.d. HOSPITAL COURSE: Ms. Anaya is an 86-year-old lady with a past medical history as stated above who presented to the emergency room on May 16 with complaints of shortness of breath for the week prior to admission. For more details about her presentation, I refer you to her history and physical . The initial impression was that the patient had an episode of COPD exacerbation and she was started o n bronchodilators and steroids. Initial chest x-ray showed no acute findings, suspect right middle lobe atelectasis. An echocardiogr am showed mildly decreased left ventricular systolic function with an ejection fraction of 45 to 50 p ercent, apical lateral wall segment was hypokinetic, right ventricular global systolic function was n ormal. As the patient's symptoms persisted with shortness of breath, CTA of the chest was requested as the p atient had immobility, tachycardia and hypoxia. CTA of the chest revealed moderate burden of acute p ulmonary emboli most confluent at the upper lobes. Images for the upper abdomen were remarkable for large volume ascites and there was interval worsening of T12 vertebral body fracture. Dr. Manning was taking care of the patient at that time and he discussed with her family, considering her history of upper GI bleed/esophageal varices in 2012 and subarachnoid hemorrhage in 2013, and decision was to p roceed with anticoagulation cautiously. The patient also has significant weight loss and progressive weakness on top of her clot burden requiring supplemental oxygen. Initially, the plan was for nursi home placement for rehabilitation, but the patient declined working with physical therapy. [facility] consultation was requested with Dr. Kim and her impression was that the patient was an 86- year-old female with a past medical history of COPD and congestive heart failure who presented to the emergency room with shortness of breath, found to have significant clot burden and severe protein ca silvana malnutrition with large volume ascites. The patient has remained on four liters with difficult y weaning, not willing to participate in physical therapy. She is eligible for hospice with a princi pal diagnosis of hypoxic respiratory failure with COPD and pulmonary emboli with a secondary diagnosi s of severe protein calorie malnutrition. The patient and the family felt it was appropriate for her to pursue hospice services in a correction since she was not interested in physical therapy or marianna ab at this point. After revealing all the risk factors, including her high risk for bleeding in the setting of known esophageal varices with prior GI bleed and a prior subarachnoid hemorrhage, anticoag ulation was discontinued. The patient was offered a bed at [facility] and the idea is for her to be admitted to hospice at [facility]. I called her son (Johnnie Anaya) and left a message asking him to call me back if he has any questi ons regarding the plan. PHYSICAL EXAMINATION: General: The patient is a frail, elderly lady, lying in bed in no acute distr ess, hard of hearing. Vital Signs: Temperature 97.4, heart rate 81, respiratory rate 18, oxygen sat uration 90 percent on four liters of nasal cannula, blood pressure 104/64. CVS: Normal S1, S2, regu lar rate and rhythm. Chest: Breath sounds bilaterally decreased with no added sounds. Abdomen: Sof t with ascites, bowel sounds are present. Neuro: She is alert, awake, oriented times three to self, place and time. Moves all four extremities, but is debilitated. DIET: Regular diet, pureed texture. ACTIVITY: As tolerated. DISPOSITION: To [facility] with plan to be admitted to hospice in the facility. STATUS WHILE IN THE HOSPITAL: Inpatient. Please keep in mind this is a summarized version of this patient's hospital stay. If you need more in formation, please feel free to call me at or please obtain the full medical record. Approximately 45 minutes were spent to complete this discharge. [id number]/[facility] #: [id number]
== END 2017-05-25 13:10 | DRG 175 ==
LOC: ED 19:56 → MED 23:39 → OBSVTOIN 05-17 15:00
PROVIDERS: ADMIT Hospitalist; ATTEND Internal Medicine
DX: I26.99 Other pulmonary embolism without acute cor pulmonale (principal); E43 Unspecified severe protein-calorie malnutrition; J96.01 Acute respiratory failure with hypoxia; R18.8 Other ascites; J44.1 Chronic obstructive pulmonary disease with (acute) exacerbation; E11.649 Type 2 diabetes mellitus with hypoglycemia without coma; I11.0 Hypertensive heart disease with heart failure; D64.9 Anemia, unspecified; I50.42 Chronic combined systolic (congestive) and diastolic (congestive) heart failure; Z68.1 Body mass index [BMI] 19.9 or less, adult; K21.9 Gastro-esophageal reflux disease without esophagitis; K75.81 Nonalcoholic steatohepatitis (NASH); K74.60 Unspecified cirrhosis of liver; E03.9 Hypothyroidism, unspecified; Z66 Do not resuscitate; F17.210 Nicotine dependence, cigarettes, uncomplicated; E78.00 Pure hypercholesterolemia, unspecified; H91.90 Unspecified hearing loss, unspecified ear; R40.2412 Glasgow coma scale score 13-15, at arrival to emergency department; Z51.5 Encounter for palliative care; Z88.5 Allergy status to narcotic agent; Z88.6 Allergy status to analgesic agent; Z97.4 Presence of external hearing-aid
CPT/HCPCS: 36415; 71020; 71275; 74000; 80048; 80053; 80076; 81003; 82140; 83036; 83735; 83880; 84134; 84443; 84484; 85025; 85027; 85610; 85730; 87040; 90686; 93005; 93306; 94640; 94760; 99406; A9270-GY; J1650; J2920; J2930; J7512; Q9967